=== PATIENT | female | born 1935 | race Caucasian/White ===

== ENCOUNTER 2017-08-19 10:09 | Emergency (ER) | payer MEDICARE, BC ==
[~2017-08-19] VITALS: Ht 152.4 cm; Wt 61.4 kg
[2017-08-19 10:48] LABS: BASOPHILS % (AUTO) 0.4 % (0-1); EOSINOPHILS # (AUTO) 0.3 X10'3 (0-0.9); EOSINOPHILS % (AUTO) 5.3 % (0-6); HEMATOCRIT 29.4 % (35.0-45.0); HEMOGLOBIN 9.6 g/dl (12.0-16.0); LYMPHOCYTES # (AUTO) 0.7 X10'3 (1.1-4.8); LYMPHOCYTES % (AUTO) 10.8 % (21-51); MEAN CORPUSCULAR HEMOGLOBIN 28.6 PG (27.0-31.0); MEAN CORPUSCULAR HGB CONC 32.8 % (33.0-36.5); MEAN CORPUSCULAR VOLUME 87.3 FL (78-98); MONOCYTES # (AUTO) 0.5 X10'3 (0-0.9); MONOCYTES % (AUTO) 7.7 % (2-12); NEUTROPHILS # (AUTO) 4.7 X10'3 (1.8-7.7); NEUTROPHILS % (AUTO) 75.8 % (42-75); PLATELET COUNT 237 X10'3 (140-440); RED BLOOD COUNT 3.37 X10'6 (4.20-5.60); RED CELL DISTRIBUTION WIDTH 14.2 % (11.5-14.5); WHITE BLOOD COUNT 6.2 X10'3 (4.5-11.0)
[2017-08-19 10:59] LABS: INR 0.9 INR; PARTIAL THROMBOPLASTIN TIME 26 SECONDS (22-32); PROTHROMBIN TIME 9.8 SECONDS (9.0-12.0)
[2017-08-19 11:04] LABS: ALANINE AMINOTRANSFERASE 19 U/L (12-78); ALBUMIN 2.9 G/DL (3.4-5.0); ALBUMIN/GLOBULIN RATIO 0.8 (1.1-1.5); ALKALINE PHOSPHATASE 95 IU/L (46-116); ANION GAP 7 (8-16); ASPARTATE AMINO TRANSFERASE 19 U/L (10-37); BILIRUBIN,TOTAL 0.2 MG/DL (0.1-1.0); BLOOD UREA NITROGEN 13 MG/DL (7-18); BUN/CREATININE RATIO 15.5 (6.6-38.0); CALCIUM 8.7 MG/DL (8.5-10.1); CHLORIDE 104 MMOL/L (99-107); CREATININE 0.84 MG/DL (0.40-0.90); GLUCOSE 106 MG/DL (70-104); POTASSIUM 3.9 MMOL/L (3.5-5.1); SODIUM 144 MMOL/L (135-145); TOTAL CARBON DIOXIDE 33.4 MMOL/L (24-32); TOTAL PROTEIN 6.6 G/DL (6.4-8.2); eGFR 65 ML/MIN
[2017-08-19] MEDS ORDERED: normal saline 1000ml 1,000 ML IV ONE (12:27)
[2017-08-19] MEDS ORDERED: HYDROcodone/acetaminophen 10/325mg tab PO ONE (12:30)
[2017-08-19] MEDS ORDERED: ondansetron 4mg rapidly disintigrating tab PO ONE (12:30)
[2017-08-19] MEDS ORDERED: iohexol 350MG/ML 100ml bottle IV ONE ×2 (12:53→13:44)
[2017-08-19] MEDS ORDERED: iohexol 350 MG/ML 50ML vial IV ONE ×2 (12:53→13:44)
[2017-08-19] MEDS ORDERED: ATOR20TA PO (13:43)
[2017-08-19] MEDS ORDERED: SERT25TA PO (13:43)
[2017-08-19] MEDS ORDERED: SENN-61 PO (13:43)
[2017-08-19] MEDS ORDERED: TRAZ-143 PO (13:43)
[2017-08-19] MEDS ORDERED: TOLT4CAP14 PO (13:43)
[2017-08-19] MEDS ORDERED: FURO-150 PO (13:44)
[2017-08-19] MEDS ORDERED: CLOP75TA35 PO (13:44)
[2017-08-19] MEDS ORDERED: DONE10TA6 PO (13:44)
[2017-08-19] MEDS ORDERED: FAMO40TA7 PO (13:44)
[2017-08-19] MEDS ORDERED: GABA-532 PO (13:46)
[2017-08-19] MEDS ORDERED: POLY17PO2 PO (13:46)
[2017-08-19] MEDS ORDERED: HYDR-565 PO (13:46)
[2017-08-19] MEDS ORDERED: ASPI81TA52 PO (14:43)
[2017-08-19] MEDS ORDERED: TRAM50TA2 PO (14:43)
[2017-08-19 15:00] VITALS: BP 141/62
== END 2017-08-19 16:22 | disposition home or self-care (01) ==
LOC: ER 10:10
DX: I77.9 Disorder of arteries and arterioles, unspecified (principal); M79.671 Pain in right foot; R60.0 Localized edema; I25.10 Atherosclerotic heart disease of native coronary artery without angina pectoris; I10 Essential (primary) hypertension; G89.29 Other chronic pain; Z88.0 Allergy status to penicillin; Z79.82 Long term (current) use of aspirin; Z98.890 Other specified postprocedural states; Z79.899 Other long term (current) drug therapy; Z60.2 Problems related to living alone
CPT/HCPCS: 36415; 71045; 73610; 73630; 75635; 80053; 83880; 85025; 85610; 85730; 93922; 93926; 93971; 99285; A6446; A6449; J7030; Q9967

== ENCOUNTER 2017-08-20 12:15 | Emergency (ER) | payer MEDICARE, BC ==
[~2017-08-20] VITALS: Ht 154.9 cm; Wt 69.0 kg
[~2017-08-20 12:15] MED LIST: ASPI81TA52 PO; ATOR20TA PO; CLOP75TA35 PO; DONE10TA6 PO; FAMO40TA7 PO; FURO-150 PO; GABA-532 PO; HYDR-565 PO; POLY17PO2 PO; SENN-61 PO; SERT25TA PO; TOLT4CAP14 PO; TRAM50TA2 PO; TRAZ-143 PO
[2017-08-20 12:47] LABS: BASOPHILS % (AUTO) 0.1 % (0-1); EOSINOPHILS # (AUTO) 0.1 X10'3 (0-0.9); EOSINOPHILS % (AUTO) 1.6 % (0-6); HEMOGLOBIN 9.3 g/dl (12.0-16.0); LYMPHOCYTES # (AUTO) 0.5 X10'3 (1.1-4.8); LYMPHOCYTES % (AUTO) 7.2 % (21-51); MEAN CORPUSCULAR HEMOGLOBIN 28.8 PG (27.0-31.0); MEAN CORPUSCULAR HGB CONC 33.1 % (33.0-36.5); MEAN CORPUSCULAR VOLUME 87.1 FL (78-98); MONOCYTES # (AUTO) 0.5 X10'3 (0-0.9); MONOCYTES % (AUTO) 6.9 % (2-12); NEUTROPHILS # (AUTO) 5.6 X10'3 (1.8-7.7); NEUTROPHILS % (AUTO) 84.2 % (42-75); PLATELET COUNT 238 X10'3 (140-440); RED BLOOD COUNT 3.22 X10'6 (4.20-5.60); RED CELL DISTRIBUTION WIDTH 14.2 % (11.5-14.5); WHITE BLOOD COUNT 6.7 X10'3 (4.5-11.0)
[2017-08-20 13:03] LABS: ALANINE AMINOTRANSFERASE 21 U/L (12-78); ALBUMIN 2.9 G/DL (3.4-5.0); ALBUMIN/GLOBULIN RATIO 0.8 (1.1-1.5); ALKALINE PHOSPHATASE 94 IU/L (46-116); ANION GAP 6 (8-16); ASPARTATE AMINO TRANSFERASE 26 U/L (10-37); BILIRUBIN,TOTAL 0.4 MG/DL (0.1-1.0); BLOOD UREA NITROGEN 14 MG/DL (7-18); BUN/CREATININE RATIO 14.4 (6.6-38.0); CALCIUM 7.4 MG/DL (8.5-10.1); CHLORIDE 102 MMOL/L (99-107); CREATININE 0.97 MG/DL (0.40-0.90); GLUCOSE 114 MG/DL (70-104); SODIUM 141 MMOL/L (135-145); TOTAL CARBON DIOXIDE 32.7 MMOL/L (24-32); TOTAL PROTEIN 6.6 G/DL (6.4-8.2); eGFR 55 ML/MIN
[2017-08-20 15:00] VITALS: BP 116/51
== END 2017-08-20 15:33 | disposition home or self-care (01) ==
LOC: ER 12:15
DX: I73.9 Peripheral vascular disease, unspecified (principal); R60.0 Localized edema; I25.10 Atherosclerotic heart disease of native coronary artery without angina pectoris; I10 Essential (primary) hypertension; G89.29 Other chronic pain; Z98.890 Other specified postprocedural states; Z60.2 Problems related to living alone; Z88.0 Allergy status to penicillin; Z79.82 Long term (current) use of aspirin; Z79.899 Other long term (current) drug therapy
CPT/HCPCS: 36415; 80053; 85025; 99284

== ENCOUNTER 2017-09-18 15:45 | Inpatient (IN) | payer MEDICARE, BC ==
[~2017-09-18] VITALS: Ht 154.9 cm; Wt 69.0 kg
[~2017-09-18 15:45] MED LIST changes: -TRAZ-143 PO; +TRAZ-218 PO
[2017-09-18] MEDS: normal saline 1000ml 1,000 ML IV SCH (16:39)
[2017-09-18] MEDS ORDERED: ondansetron/PF 4mg/2ml inj IV PRN (16:40)
[2017-09-18] MEDS ORDERED: acetaminophen 325mg tablet PO PRN ×2 (16:40)
[2017-09-18] MEDS ORDERED: HYDROcodone/acetaminophen 10/325mg tab PO PRN (16:40)
[2017-09-18] MEDS ORDERED: magnesium Cl slow-release 64mg tablet PO PRN (16:40)
[2017-09-18] MEDS ORDERED: magnesium hydroxide 30ml (MOM) UD suspension PO PRN (16:40)
[2017-09-18] MEDS ORDERED: potassium Cl 40MEQ/NS 500ml 500 ML IV PRN ×2 (16:40)
[2017-09-18] MEDS ORDERED: mag hydrox/Alum hydrox/simeth 30ml oral suspension PO PRN (16:40)
[2017-09-18] MEDS ORDERED: magnesium 1gm/100ml D5W IVPB 100 ML IV PRN (16:40)
[2017-09-18] MEDS ORDERED: potassium Cl 20 mEq SR tablet PO PRN ×2 (16:40)
[2017-09-18] MEDS ORDERED: magnesium 4gm in 100ml NS 100 ML IV PRN (16:40)
[2017-09-18] MEDS ORDERED: HYDROmorphone inj. 0.5 MG/0.5 ML DISP.SYRIN IV PRN ×2 (16:40)
[2017-09-18 17:00] VITALS: BP 158/45
[2017-09-18 17:29] LABS: BASOPHILS % (AUTO) 0.4 % (0-1); EOSINOPHILS # (AUTO) 0.3 X10'3 (0-0.9); EOSINOPHILS % (AUTO) 5.2 % (0-6); HEMATOCRIT 26.5 % (35.0-45.0); HEMOGLOBIN 8.7 g/dl (12.0-16.0); LYMPHOCYTES # (AUTO) 0.8 X10'3 (1.1-4.8); LYMPHOCYTES % (AUTO) 15.8 % (21-51); MEAN CORPUSCULAR HEMOGLOBIN 27.9 PG (27.0-31.0); MEAN CORPUSCULAR HGB CONC 32.9 % (33.0-36.5); MEAN CORPUSCULAR VOLUME 84.7 FL (78-98); MEAN PLATELET VOLUME 6.9 FL (7.4-10.4); MONOCYTES # (AUTO) 0.4 X10'3 (0-0.9); MONOCYTES % (AUTO) 7.6 % (2-12); NEUTROPHILS # (AUTO) 3.8 X10'3 (1.8-7.7); PLATELET COUNT 285 X10'3 (140-440); RED BLOOD COUNT 3.13 X10'6 (4.20-5.60); RED CELL DISTRIBUTION WIDTH 14.2 % (11.5-14.5); WHITE BLOOD COUNT 5.3 X10'3 (4.5-11.0)
[2017-09-18 17:37] LABS: PARTIAL THROMBOPLASTIN TIME 24 SECONDS (22-32)
[2017-09-18] MEDS ORDERED: vancomycin/NS 1 GM ADD-VANTAGE 250 ML IV STA (17:40)
[2017-09-18 17:42] LABS: ALANINE AMINOTRANSFERASE 14 U/L (12-78); ALBUMIN 2.6 G/DL (3.4-5.0); ALBUMIN/GLOBULIN RATIO 0.7 (1.1-1.5); ALKALINE PHOSPHATASE 130 IU/L (46-116); ANION GAP 5 (8-16); ASPARTATE AMINO TRANSFERASE 14 U/L (10-37); BILIRUBIN,TOTAL 0.3 MG/DL (0.1-1.0); BLOOD UREA NITROGEN 12 MG/DL (7-18); BUN/CREATININE RATIO 15.4 (6.6-38.0); CALCIUM 8.5 MG/DL (8.5-10.1); CHLORIDE 104 MMOL/L (99-107); CREATININE 0.78 MG/DL (0.40-0.90); GLUCOSE 118 MG/DL (70-104); PHOSPHORUS 3.5 MG/DL (2.3-4.5); POTASSIUM 3.4 MMOL/L (3.5-5.1); SODIUM 142 MMOL/L (135-145); TOTAL CARBON DIOXIDE 32.6 MMOL/L (24-32); TOTAL PROTEIN 6.3 G/DL (6.4-8.2); eGFR 70 ML/MIN
[2017-09-18] MEDS ORDERED: HYDROmorphone 1 mg/ml syringe ONE (18:56)
[2017-09-18 20:00] VITALS: BP 179/40
[2017-09-18] MEDS ORDERED: traMADol 50MG tablet PO PRN (20:00)
[2017-09-18] MEDS: gabapentin 300mg capsule PO SCH (20:41)
[2017-09-18] MEDS: heparin, porcine 5000 units/ml vial SQ SCH (20:41)
[2017-09-18] MEDS: donepezil 5mg tablet PO SCH (20:42)
[2017-09-18] MEDS: famotidine 20mg tablet PO SCH (20:42)
[2017-09-18] MEDS: traZODone 50mg tablet PO SCH (20:43)
[2017-09-18] MEDS: atorvastatin 20mg tablet PO SCH (20:43)
[2017-09-18] MEDS ORDERED: temazepam 15mg capsule PO PRN (21:00)
[2017-09-19] VITALS (14 sets, daily range): BP systolic 115–166; BP diastolic 34–99
[2017-09-19 04:31] LABS: BASOPHILS % (AUTO) 0.5 % (0-1); EOSINOPHILS # (AUTO) 0.3 X10'3 (0-0.9); EOSINOPHILS % (AUTO) 5.3 % (0-6); HEMATOCRIT 25.5 % (35.0-45.0); HEMOGLOBIN 8.4 g/dl (12.0-16.0); LYMPHOCYTES # (AUTO) 0.9 X10'3 (1.1-4.8); LYMPHOCYTES % (AUTO) 17.2 % (21-51); MEAN CORPUSCULAR HEMOGLOBIN 27.9 PG (27.0-31.0); MEAN CORPUSCULAR HGB CONC 32.8 % (33.0-36.5); MEAN CORPUSCULAR VOLUME 85.3 FL (78-98); MEAN PLATELET VOLUME 7.1 FL (7.4-10.4); MONOCYTES # (AUTO) 0.5 X10'3 (0-0.9); MONOCYTES % (AUTO) 8.7 % (2-12); NEUTROPHILS # (AUTO) 3.7 X10'3 (1.8-7.7); NEUTROPHILS % (AUTO) 68.3 % (42-75); PLATELET COUNT 260 X10'3 (140-440); RED BLOOD COUNT 2.99 X10'6 (4.20-5.60); RED CELL DISTRIBUTION WIDTH 14.1 % (11.5-14.5); WHITE BLOOD COUNT 5.4 X10'3 (4.5-11.0)
[2017-09-19 04:58] LABS: ALANINE AMINOTRANSFERASE 14 U/L (12-78); ALBUMIN 2.3 G/DL (3.4-5.0); ALBUMIN/GLOBULIN RATIO 0.7 (1.1-1.5); ALKALINE PHOSPHATASE 118 IU/L (46-116); ANION GAP 6 (8-16); ASPARTATE AMINO TRANSFERASE 14 U/L (10-37); BILIRUBIN,TOTAL 0.4 MG/DL (0.1-1.0); BLOOD UREA NITROGEN 12 MG/DL (7-18); BUN/CREATININE RATIO 16.9 (6.6-38.0); CALCIUM 8.3 MG/DL (8.5-10.1); CHLORIDE 108 MMOL/L (99-107); CHOL/HDL RATIO 2.2 (0.00-4.99); CHOLESTEROL 104 MG/DL (0-200); CREATININE 0.71 MG/DL (0.40-0.90); GLUCOSE 104 MG/DL (70-104); HDL CHOLESTEROL 47 MG/DL (35-60); LDL CHOLESTEROL 45 MG/DL (50-100); MAGNESIUM 1.9 MG/DL (1.5-2.4); PHOSPHORUS 3.4 MG/DL (2.3-4.5); POTASSIUM 3.7 MMOL/L (3.5-5.1); SODIUM 144 MMOL/L (135-145); TOTAL CARBON DIOXIDE 29.9 MMOL/L (24-32); TOTAL PROTEIN 5.8 G/DL (6.4-8.2); TRIGLYCERIDES 75 MG/DL (20-135); eGFR 78 ML/MIN
[2017-09-19] MEDS: vancomycin/NS 1 GM ADD-VANTAGE 250 ML IV SCH ×2 (05:11→16:57)
[2017-09-19 06:31] LABS: CLARITY,URINE CLEAR (Clear); COLOR,URINE YELLOW (Yellow); GLUCOSE, URINE NEGATIVE (Neg); KETONES,URINE NEGATIVE (Neg); LEUKOCYTE ESTERASE ,URINE NEGATIVE (Neg); NITRITES, URINE NEGATIVE (Neg); OCCULT BLOOD,URINE LARGE (Neg); PROTEIN,URINE NEGATIVE (Neg); UROBILINOGEN,URINE 0.2 E.U/dL (0.2-1.0)
[2017-09-19 06:32] LABS: PH,URINE 7.5 (4.8-8.0)
[2017-09-19 06:49] LABS: UA COLLECTION TYPE NON-SPECIFIED
[2017-09-19 06:50] LABS: BACTERIA,URINE FEW /HPF (Neg); RBC,URINE TNTC /HPF (0-2); SQUAMOUS EPITHELIAL CELL,UR FEW /LPF (FEW); WBC,URINE 0-4 /HPF (0-4)
[2017-09-19] MEDS: sertraline 25mg tablet PO SCH (07:11)
[2017-09-19] MEDS: oxybutynin 5mg tablet PO SCH ×4 (07:12→20:57)
[2017-09-19] MEDS: heparin, porcine 5000 units/ml vial SQ SCH ×2 (07:12→19:57)
[2017-09-19] MEDS: gabapentin 300mg capsule PO SCH ×3 (07:12→20:58)
[2017-09-19] MEDS ORDERED: K and/or MAG REPLACEMENT MC SCH (08:00)
[2017-09-19] MEDS: normal saline 1000ml 1,000 ML IV SCH ×2 (08:07→20:59)
[2017-09-19] MEDS ORDERED: pneumococcal 23-VAL P-sac vacc 25 mcg/0.5ml vial IMVAC ONE (10:00)
[2017-09-19 14:24] LABS: % IRON SATURATION 22 % (11-46); IRON 34 UG/DL (49-151); TOTAL IRON BINDING CAPACITY 155 UG/DL (259-388)
[2017-09-19] MEDS: lactobacillus rhamnosus 10,000 MMU CELLS/CAPSULE PO SCH (19:55)
[2017-09-19] MEDS: HYDROcodone/acetaminophen 5mg/325mg tablet PO PRN (19:56)
[2017-09-19] MEDS: traZODone 50mg tablet PO SCH (20:57)
[2017-09-19] MEDS: atorvastatin 20mg tablet PO SCH (20:57)
[2017-09-19] MEDS: famotidine 20mg tablet PO SCH (20:58)
[2017-09-19] MEDS: donepezil 5mg tablet PO SCH (20:58)
[2017-09-20] VITALS: BP 146/60
[2017-09-20] MEDS ORDERED: VANCOMYCIN LEVEL IV ONE (05:30)
[2017-09-20] MEDS: vancomycin/NS 1 GM ADD-VANTAGE 250 ML IV SCH ×2 (05:46→17:30)
[2017-09-20 05:51] LABS: BASOPHILS % (AUTO) 0.3 % (0-1); EOSINOPHILS # (AUTO) 0.2 X10'3 (0-0.9); EOSINOPHILS % (AUTO) 3.3 % (0-6); HEMATOCRIT 33.4 % (35.0-45.0); LYMPHOCYTES # (AUTO) 0.5 X10'3 (1.1-4.8); LYMPHOCYTES % (AUTO) 10.7 % (21-51); MEAN CORPUSCULAR HEMOGLOBIN 28.7 PG (27.0-31.0); MEAN CORPUSCULAR HGB CONC 32.9 % (33.0-36.5); MEAN CORPUSCULAR VOLUME 87.2 FL (78-98); MEAN PLATELET VOLUME 7.1 FL (7.4-10.4); MONOCYTES # (AUTO) 0.4 X10'3 (0-0.9); MONOCYTES % (AUTO) 8.2 % (2-12); NEUTROPHILS # (AUTO) 3.9 X10'3 (1.8-7.7); NEUTROPHILS % (AUTO) 77.5 % (42-75); PLATELET COUNT 230 X10'3 (140-440); RED BLOOD COUNT 3.83 X10'6 (4.20-5.60); RED CELL DISTRIBUTION WIDTH 14.7 % (11.5-14.5)
[2017-09-20 06:05] LABS: ALANINE AMINOTRANSFERASE 14 U/L (12-78); ALBUMIN 2.3 G/DL (3.4-5.0); ALBUMIN/GLOBULIN RATIO 0.6 (1.1-1.5); ALKALINE PHOSPHATASE 120 IU/L (46-116); ANION GAP 5 (8-16); ASPARTATE AMINO TRANSFERASE 12 U/L (10-37); BILIRUBIN,TOTAL 0.7 MG/DL (0.1-1.0); BLOOD UREA NITROGEN 9 MG/DL (7-18); BUN/CREATININE RATIO 15.5 (6.6-38.0); CALCIUM 8.6 MG/DL (8.5-10.1); CHLORIDE 108 MMOL/L (99-107); CREATININE 0.58 MG/DL (0.40-0.90); GLUCOSE 107 MG/DL (70-104); PHOSPHORUS 3.1 MG/DL (2.3-4.5); POTASSIUM 3.8 MMOL/L (3.5-5.1); SODIUM 142 MMOL/L (135-145); TOTAL CARBON DIOXIDE 29.4 MMOL/L (24-32); VANCOMYCIN,TROUGH 16.9 UG/ML (6.0-14.0); eGFR > 90 ML/MIN
[2017-09-20 07:19] VITALS: BP 165/51
[2017-09-20 07:28] LABS: PARTIAL THROMBOPLASTIN TIME 25 SECONDS (22-32); PROTHROMBIN TIME 10.2 SECONDS (9.0-12.0)
[2017-09-20] MEDS: gabapentin 300mg capsule PO SCH ×3 (07:36→20:23)
[2017-09-20] MEDS: oxybutynin 5mg tablet PO SCH ×4 (07:36→20:23)
[2017-09-20] MEDS: sertraline 25mg tablet PO SCH (07:37)
[2017-09-20] MEDS: lactobacillus rhamnosus 10,000 MMU CELLS/CAPSULE PO SCH ×2 (07:37→20:21)
[2017-09-20] MEDS: heparin, porcine 5000 units/ml vial SQ SCH ×2 (07:37→20:22)
[2017-09-20 08:00] VITALS: BP 151/58
[2017-09-20] MEDS: normal saline 1000ml 1,000 ML IV SCH (11:33)
[2017-09-20 12:29] VITALS: BP 150/51
[2017-09-20] MEDS: HYDROcodone/acetaminophen 5mg/325mg tablet PO PRN (14:42)
[2017-09-20] MEDS: ferrous sulfate 325mg tablet PO SCH (17:30)
[2017-09-20 20:00] VITALS: BP 148/39
[2017-09-20] MEDS: docusate sod 100mg capsule PO SCH (20:21)
[2017-09-20] MEDS: donepezil 5mg tablet PO SCH (20:22)
[2017-09-20] MEDS: traZODone 50mg tablet PO SCH (20:23)
[2017-09-20] MEDS: atorvastatin 20mg tablet PO SCH (20:23)
[2017-09-20] MEDS: famotidine 20mg tablet PO SCH (20:24)
[2017-09-21] VITALS: BP 160/60
[2017-09-21] MEDS: normal saline 1000ml 1,000 ML IV SCH ×3 (01:51→20:08)
[2017-09-21] MEDS: vancomycin/NS 1 GM ADD-VANTAGE 250 ML IV SCH ×2 (05:50→17:57)
[2017-09-21 05:57] LABS: BASOPHILS % (AUTO) 0.6 % (0-1); EOSINOPHILS # (AUTO) 0.3 X10'3 (0-0.9); EOSINOPHILS % (AUTO) 6.1 % (0-6); HEMOGLOBIN 11.3 g/dl (12.0-16.0); LYMPHOCYTES # (AUTO) 0.6 X10'3 (1.1-4.8); LYMPHOCYTES % (AUTO) 9.9 % (21-51); MEAN CORPUSCULAR HEMOGLOBIN 28.8 PG (27.0-31.0); MEAN CORPUSCULAR HGB CONC 33.2 % (33.0-36.5); MEAN CORPUSCULAR VOLUME 86.7 FL (78-98); MEAN PLATELET VOLUME 7.2 FL (7.4-10.4); MONOCYTES # (AUTO) 0.4 X10'3 (0-0.9); MONOCYTES % (AUTO) 7.4 % (2-12); NEUTROPHILS # (AUTO) 4.4 X10'3 (1.8-7.7); PLATELET COUNT 225 X10'3 (140-440); RED BLOOD COUNT 3.92 X10'6 (4.20-5.60); RED CELL DISTRIBUTION WIDTH 14.6 % (11.5-14.5); WHITE BLOOD COUNT 5.7 X10'3 (4.5-11.0)
[2017-09-21 06:22] LABS: ALANINE AMINOTRANSFERASE 11 U/L (12-78); ALBUMIN 2.3 G/DL (3.4-5.0); ALBUMIN/GLOBULIN RATIO 0.6 (1.1-1.5); ALKALINE PHOSPHATASE 113 IU/L (46-116); ANION GAP 7 (8-16); ASPARTATE AMINO TRANSFERASE 11 U/L (10-37); BILIRUBIN,TOTAL 0.7 MG/DL (0.1-1.0); BLOOD UREA NITROGEN 13 MG/DL (7-18); BUN/CREATININE RATIO 20.6 (6.6-38.0); CALCIUM 8.6 MG/DL (8.5-10.1); CHLORIDE 107 MMOL/L (99-107); CREATININE 0.63 MG/DL (0.40-0.90); GLUCOSE 98 MG/DL (70-104); MAGNESIUM 1.9 MG/DL (1.5-2.4); PHOSPHORUS 3.2 MG/DL (2.3-4.5); POTASSIUM 3.6 MMOL/L (3.5-5.1); SODIUM 141 MMOL/L (135-145); eGFR 90 ML/MIN
[2017-09-21 08:00] VITALS: BP 170/58
[2017-09-21] MEDS: docusate sod 100mg capsule PO SCH ×2 (08:27→20:16)
[2017-09-21] MEDS: lactobacillus rhamnosus 10,000 MMU CELLS/CAPSULE PO SCH ×2 (08:27→20:16)
[2017-09-21] MEDS: gabapentin 300mg capsule PO SCH ×3 (08:27→20:17)
[2017-09-21] MEDS: oxybutynin 5mg tablet PO SCH ×4 (08:27→20:17)
[2017-09-21] MEDS: ferrous sulfate 325mg tablet PO SCH ×3 (08:27→17:57)
[2017-09-21] MEDS: sertraline 25mg tablet PO SCH (08:27)
[2017-09-21] MEDS: HYDROcodone/acetaminophen 5mg/325mg tablet PO PRN (08:28)
[2017-09-21] MEDS: heparin, porcine 5000 units/ml vial SQ SCH ×2 (08:28→20:16)
[2017-09-21 12:00] VITALS: BP 100/50
[2017-09-21 20:00] VITALS: BP_SYST 152; BP_SYST 170; BP_DIAS 44; BP_DIAS 56
[2017-09-21] MEDS: famotidine 20mg tablet PO SCH (20:17)
[2017-09-21] MEDS: traZODone 50mg tablet PO SCH (20:17)
[2017-09-21] MEDS: donepezil 5mg tablet PO SCH (20:17)
[2017-09-21] MEDS: atorvastatin 20mg tablet PO SCH (20:18)
[2017-09-22] VITALS: BP 152/56
[2017-09-22] MEDS: vancomycin/NS 1 GM ADD-VANTAGE 250 ML IV SCH ×2 (05:40→18:57)
[2017-09-22 05:44] LABS: BASOPHILS % (AUTO) 0.5 % (0-1); EOSINOPHILS # (AUTO) 0.4 X10'3 (0-0.9); EOSINOPHILS % (AUTO) 7.1 % (0-6); HEMATOCRIT 33.5 % (35.0-45.0); HEMOGLOBIN 11.3 g/dl (12.0-16.0); LYMPHOCYTES # (AUTO) 0.6 X10'3 (1.1-4.8); LYMPHOCYTES % (AUTO) 11.1 % (21-51); MEAN CORPUSCULAR HEMOGLOBIN 28.8 PG (27.0-31.0); MEAN CORPUSCULAR HGB CONC 33.6 % (33.0-36.5); MEAN CORPUSCULAR VOLUME 85.8 FL (78-98); MEAN PLATELET VOLUME 7.1 FL (7.4-10.4); MONOCYTES # (AUTO) 0.5 X10'3 (0-0.9); MONOCYTES % (AUTO) 9.1 % (2-12); NEUTROPHILS # (AUTO) 3.7 X10'3 (1.8-7.7); NEUTROPHILS % (AUTO) 72.2 % (42-75); PLATELET COUNT 218 X10'3 (140-440); RED BLOOD COUNT 3.91 X10'6 (4.20-5.60); RED CELL DISTRIBUTION WIDTH 14.8 % (11.5-14.5); WHITE BLOOD COUNT 5.2 X10'3 (4.5-11.0)
[2017-09-22 06:08] LABS: ALANINE AMINOTRANSFERASE 15 U/L (12-78); ALBUMIN 2.2 G/DL (3.4-5.0); ALBUMIN/GLOBULIN RATIO 0.5 (1.1-1.5); ALKALINE PHOSPHATASE 103 IU/L (46-116); ANION GAP 8 (8-16); ASPARTATE AMINO TRANSFERASE 17 U/L (10-37); BILIRUBIN,TOTAL 0.5 MG/DL (0.1-1.0); BLOOD UREA NITROGEN 14 MG/DL (7-18); CALCIUM 8.5 MG/DL (8.5-10.1); CHLORIDE 108 MMOL/L (99-107); CREATININE 0.61 MG/DL (0.40-0.90); GLUCOSE 95 MG/DL (70-104); MAGNESIUM 1.9 MG/DL (1.5-2.4); PHOSPHORUS 3.6 MG/DL (2.3-4.5); POTASSIUM 3.8 MMOL/L (3.5-5.1); SODIUM 143 MMOL/L (135-145); TOTAL CARBON DIOXIDE 26.8 MMOL/L (24-32); TOTAL PROTEIN 6.3 G/DL (6.4-8.2); eGFR > 90 ML/MIN
[2017-09-22 07:00] VITALS: BP 167/50
[2017-09-22] MEDS: lactobacillus rhamnosus 10,000 MMU CELLS/CAPSULE PO SCH ×2 (08:36→20:41)
[2017-09-22] MEDS: oxybutynin 5mg tablet PO SCH ×4 (08:36→20:49)
[2017-09-22] MEDS: sertraline 25mg tablet PO SCH (08:36)
[2017-09-22] MEDS: docusate sod 100mg capsule PO SCH ×2 (08:36→20:40)
[2017-09-22] MEDS: gabapentin 300mg capsule PO SCH ×3 (08:36→20:50)
[2017-09-22] MEDS: ferrous sulfate 325mg tablet PO SCH ×3 (08:36→17:54)
[2017-09-22] MEDS: heparin, porcine 5000 units/ml vial SQ SCH ×2 (08:37→20:41)
[2017-09-22 12:00] VITALS: BP 170/51
[2017-09-22 20:00] VITALS: BP 153/88
[2017-09-22] MEDS: normal saline 1000ml 1,000 ML IV SCH (20:41)
[2017-09-22] MEDS: donepezil 5mg tablet PO SCH (20:42)
[2017-09-22] MEDS: traZODone 50mg tablet PO SCH (20:48)
[2017-09-22] MEDS: atorvastatin 20mg tablet PO SCH (20:49)
[2017-09-22] MEDS: famotidine 20mg tablet PO SCH (20:51)
[2017-09-22] MEDS: HYDROcodone/acetaminophen 5mg/325mg tablet PO PRN (20:52)
[2017-09-23] VITALS: BP 151/40
[2017-09-23] MEDS: normal saline 1000ml 1,000 ML IV SCH (05:28)
[2017-09-23 05:43] LABS: BASOPHILS % (AUTO) 0.7 % (0-1); EOSINOPHILS # (AUTO) 0.4 X10'3 (0-0.9); EOSINOPHILS % (AUTO) 8.4 % (0-6); HEMATOCRIT 32.1 % (35.0-45.0); HEMOGLOBIN 10.6 g/dl (12.0-16.0); LYMPHOCYTES # (AUTO) 0.7 X10'3 (1.1-4.8); LYMPHOCYTES % (AUTO) 13.8 % (21-51); MEAN CORPUSCULAR HEMOGLOBIN 28.9 PG (27.0-31.0); MEAN CORPUSCULAR HGB CONC 33.2 % (33.0-36.5); MEAN CORPUSCULAR VOLUME 87.2 FL (78-98); MEAN PLATELET VOLUME 7.1 FL (7.4-10.4); MONOCYTES # (AUTO) 0.6 X10'3 (0-0.9); NEUTROPHILS # (AUTO) 3.3 X10'3 (1.8-7.7); NEUTROPHILS % (AUTO) 65.1 % (42-75); PLATELET COUNT 210 X10'3 (140-440); RED BLOOD COUNT 3.69 X10'6 (4.20-5.60); WHITE BLOOD COUNT 5.1 X10'3 (4.5-11.0)
[2017-09-23] MEDS: vancomycin/NS 1 GM ADD-VANTAGE 250 ML IV SCH ×4 (05:45→17:08)
[2017-09-23 06:01] LABS: ALANINE AMINOTRANSFERASE 13 U/L (12-78); ALBUMIN 2.2 G/DL (3.4-5.0); ALBUMIN/GLOBULIN RATIO 0.6 (1.1-1.5); ALKALINE PHOSPHATASE 95 IU/L (46-116); ANION GAP 8 (8-16); ASPARTATE AMINO TRANSFERASE 15 U/L (10-37); BILIRUBIN,TOTAL 0.3 MG/DL (0.1-1.0); BLOOD UREA NITROGEN 17 MG/DL (7-18); CALCIUM 8.5 MG/DL (8.5-10.1); CHLORIDE 107 MMOL/L (99-107); CREATININE 0.63 MG/DL (0.40-0.90); GLUCOSE 128 MG/DL (70-104); MAGNESIUM 1.9 MG/DL (1.5-2.4); PHOSPHORUS 3.6 MG/DL (2.3-4.5); POTASSIUM 3.7 MMOL/L (3.5-5.1); SODIUM 141 MMOL/L (135-145); TOTAL CARBON DIOXIDE 26.1 MMOL/L (24-32); TOTAL PROTEIN 5.7 G/DL (6.4-8.2); eGFR 90 ML/MIN
[2017-09-23 06:55] VITALS: BP 207/58
[2017-09-23] MEDS: gabapentin 300mg capsule PO SCH ×3 (07:46→21:12)
[2017-09-23] MEDS: ferrous sulfate 325mg tablet PO SCH ×3 (07:46→17:07)
[2017-09-23] MEDS: lactobacillus rhamnosus 10,000 MMU CELLS/CAPSULE PO SCH ×2 (07:46→21:09)
[2017-09-23] MEDS: docusate sod 100mg capsule PO SCH ×2 (07:47→21:09)
[2017-09-23] MEDS: heparin, porcine 5000 units/ml vial SQ SCH ×2 (07:47→20:00)
[2017-09-23] MEDS: sertraline 25mg tablet PO SCH (07:47)
[2017-09-23] MEDS: oxybutynin 5mg tablet PO SCH ×4 (07:47→21:10)
[2017-09-23 08:26] VITALS: BP 180/48
[2017-09-23 11:41] VITALS: BP 162/48
[2017-09-23] MEDS: furosemide 20 MG/2 ML vial IV SCH ×2 (15:46→21:18)
[2017-09-23 19:00] VITALS: BP 148/43
[2017-09-23] MEDS: atorvastatin 20mg tablet PO SCH (21:10)
[2017-09-23] MEDS: donepezil 5mg tablet PO SCH (21:10)
[2017-09-23] MEDS: traZODone 50mg tablet PO SCH (21:10)
[2017-09-23] MEDS: famotidine 20mg tablet PO SCH (21:11)
[2017-09-24] VITALS: BP 146/53
[2017-09-24] MEDS: vancomycin/NS 1 GM ADD-VANTAGE 250 ML IV SCH ×2 (05:20→16:25)
[2017-09-24] MEDS: lactobacillus rhamnosus 10,000 MMU CELLS/CAPSULE PO SCH ×2 (07:41→21:01)
[2017-09-24] MEDS: oxybutynin 5mg tablet PO SCH ×4 (07:41→21:03)
[2017-09-24] MEDS: sertraline 25mg tablet PO SCH (07:41)
[2017-09-24] MEDS: furosemide 20 MG/2 ML vial IV SCH (07:41)
[2017-09-24] MEDS: docusate sod 100mg capsule PO SCH ×2 (07:41→21:01)
[2017-09-24] MEDS: gabapentin 300mg capsule PO SCH ×3 (07:41→21:05)
[2017-09-24] MEDS: heparin, porcine 5000 units/ml vial SQ SCH ×2 (07:42→21:02)
[2017-09-24] MEDS: ferrous sulfate 325mg tablet PO SCH ×3 (07:46→16:24)
[2017-09-24 07:47] VITALS: BP 157/41
[2017-09-24] MEDS ORDERED: furosemide 20 MG/2 ML vial IV SCH (14:00)
[2017-09-24] MEDS: lisinopril 20mg tablet PO SCH (15:00)
[2017-09-24 19:00] VITALS: BP 108/41
[2017-09-24] MEDS: donepezil 5mg tablet PO SCH (21:02)
[2017-09-24] MEDS: traZODone 50mg tablet PO SCH (21:02)
[2017-09-24] MEDS: atorvastatin 20mg tablet PO SCH (21:04)
[2017-09-24] MEDS: HYDROcodone/acetaminophen 5mg/325mg tablet PO PRN (21:06)
[2017-09-24] MEDS: famotidine 20mg tablet PO SCH (21:07)
[2017-09-25] VITALS: BP 129/26
[2017-09-25] MEDS: vancomycin/NS 1 GM ADD-VANTAGE 250 ML IV SCH (05:31)
[2017-09-25 07:00] VITALS: BP 106/49
[2017-09-25] MEDS: gabapentin 300mg capsule PO SCH ×2 (07:56→12:55)
[2017-09-25] MEDS: ferrous sulfate 325mg tablet PO SCH ×2 (07:56→12:55)
[2017-09-25] MEDS: sertraline 25mg tablet PO SCH (07:57)
[2017-09-25] MEDS: docusate sod 100mg capsule PO SCH (07:57)
[2017-09-25] MEDS: oxybutynin 5mg tablet PO SCH ×2 (07:57→12:55)
[2017-09-25] MEDS: lactobacillus rhamnosus 10,000 MMU CELLS/CAPSULE PO SCH (07:58)
[2017-09-25] MEDS: lisinopril 20mg tablet PO SCH (07:58)
[2017-09-25] MEDS: heparin, porcine 5000 units/ml vial SQ SCH (07:59)
== END 2017-09-25 14:30 | DRG 565 ==
LOC: SUR 3N 15:45
PROVIDERS: ADMIT Surgery; ATTEND Family Medicine
PROC: 30233N1 Transfusion of Nonautologous Red Blood Cells into Peripheral Vein, Percutaneous Approach (ICD-10-PCS; principal; 2017-09-19)
DX: T87.43 Infection of amputation stump, right lower extremity (principal); E44.0 Moderate protein-calorie malnutrition; I73.9 Peripheral vascular disease, unspecified; E78.5 Hyperlipidemia, unspecified; D50.9 Iron deficiency anemia, unspecified; F32.9 Major depressive disorder, single episode, unspecified; Z66 Do not resuscitate; Y83.5 Amputation of limb(s) as the cause of abnormal reaction of the patient, or of later complication, without mention of misadventure at the time of the procedure; I10 Essential (primary) hypertension; Z90.710 Acquired absence of both cervix and uterus; Z90.49 Acquired absence of other specified parts of digestive tract; Z79.899 Other long term (current) drug therapy; Z79.82 Long term (current) use of aspirin; Z88.0 Allergy status to penicillin; Z87.891 Personal history of nicotine dependence; Y92.89 Other specified places as the place of occurrence of the external cause; Z68.28 Body mass index [BMI] 28.0-28.9, adult
CPT/HCPCS: 36415; 71045; 80053; 80061; 80202; 81001; 82746; 83540; 83550; 83605; 83735; 84100; 85025; 85610; 85730; 86885; 86900; 86901; 86920; 87040; 87070; 90732; 97110; 97161; 97530; A4315; A6212; A6213; A6253; A6446; A6449; J1170; J1644; J1940; J3370; J7030; P9016

== ENCOUNTER 2018-01-03 09:02 | Inpatient (IN) | payer MEDICARE, BC ==
[~2018-01-03] VITALS: Ht 154.9 cm; Wt 59.0 kg
[2018-01-03] VITALS (8 sets, daily range): BP systolic 113–146; BP diastolic 44–70
[~2018-01-03 09:02] MED LIST changes: -DONE10TA6 PO; +DONE10TA7 PO; +HYDR-4353 PO; -HYDR-565 PO; -TRAM50TA2 PO
[2018-01-03 09:44] LABS: BASOPHILS % (AUTO) 0.4 % (0-1); EOSINOPHILS # (AUTO) 0.2 X10'3 (0-0.9); EOSINOPHILS % (AUTO) 3.4 % (0-6); HEMATOCRIT 28.6 % (35.0-45.0); HEMOGLOBIN 9.6 g/dl (12.0-16.0); LYMPHOCYTES # (AUTO) 0.7 X10'3 (1.1-4.8); LYMPHOCYTES % (AUTO) 14.8 % (21-51); MEAN CORPUSCULAR HEMOGLOBIN 29.3 PG (27.0-31.0); MEAN CORPUSCULAR HGB CONC 33.5 % (33.0-36.5); MEAN CORPUSCULAR VOLUME 87.6 FL (78-98); MEAN PLATELET VOLUME 7.1 FL (7.4-10.4); MONOCYTES # (AUTO) 0.4 X10'3 (0-0.9); MONOCYTES % (AUTO) 8.2 % (2-12); NEUTROPHILS # (AUTO) 3.5 X10'3 (1.8-7.7); NEUTROPHILS % (AUTO) 73.2 % (42-75); PLATELET COUNT 355 X10'3 (140-440); RED BLOOD COUNT 3.26 X10'6 (4.20-5.60); RED CELL DISTRIBUTION WIDTH 13.7 % (11.5-14.5); WHITE BLOOD COUNT 4.8 X10'3 (4.5-11.0)
[2018-01-03 09:55] LABS: PROTHROMBIN TIME 10.3 SECONDS (9.0-12.0)
[2018-01-03 09:58] LABS: ALANINE AMINOTRANSFERASE 15 U/L (12-78); ALBUMIN/GLOBULIN RATIO 0.8 (1.1-1.5); ALKALINE PHOSPHATASE 99 IU/L (46-116); ANION GAP 3 (8-16); ASPARTATE AMINO TRANSFERASE 26 U/L (10-37); BILIRUBIN,TOTAL 0.4 MG/DL (0.1-1.0); BLOOD UREA NITROGEN 28 MG/DL (7-18); BUN/CREATININE RATIO 21.5 (6.6-38.0); CALCIUM 9.1 MG/DL (8.5-10.1); CHLORIDE 101 MMOL/L (99-107); GLUCOSE 101 MG/DL (70-104); POTASSIUM 4.5 MMOL/L (3.5-5.1); SODIUM 136 MMOL/L (135-145); TOTAL CARBON DIOXIDE 32.4 MMOL/L (24-32); TOTAL PROTEIN 6.8 G/DL (6.4-8.2); eGFR 39 ML/MIN
[2018-01-03 10:16] LABS: CLARITY,URINE CLEAR (Clear); COLOR,URINE YELLOW (Yellow); GLUCOSE, URINE NEGATIVE (Neg); KETONES,URINE NEGATIVE (Neg); LEUKOCYTE ESTERASE ,URINE NEGATIVE (Neg); NITRITES, URINE NEGATIVE (Neg); OCCULT BLOOD,URINE NEGATIVE (Neg); PROTEIN,URINE NEGATIVE (Neg); UROBILINOGEN,URINE 0.2 E.U/dL (0.2-1.0)
[2018-01-03] MEDS ORDERED: normal saline 1000ML IV soln IVB ONE (10:20)
[2018-01-03 10:23] LABS: UA COLLECTION TYPE STRAIGHT CATH
[2018-01-03] MEDS ORDERED: PRAV80TA3 PO (13:05)
[2018-01-03] MEDS ORDERED: DOCU-28 PO (13:05)
[2018-01-03] MEDS ORDERED: HYDR-4383 PO (13:05)
[2018-01-03] MEDS ORDERED: CLOP75TA35 PO (13:05)
[2018-01-03] MEDS ORDERED: LISI-600 PO (13:05)
[2018-01-03] MEDS ORDERED: OXYB5TAB11 PO (13:05)
[2018-01-03] MEDS ORDERED: DONE5TAB7 PO (13:05)
[2018-01-03] MEDS ORDERED: FERR325T28 PO (13:05)
[2018-01-03] MEDS ORDERED: GABA800T2 PO (13:05)
[2018-01-03] MEDS ORDERED: SERT25TA PO (13:05)
[2018-01-03] MEDS ORDERED: potassium Cl 40MEQ/NS 500ml 500 ML IV PRN ×2 (13:20)
[2018-01-03] MEDS ORDERED: acetaminophen 325mg tablet PO PRN (13:20)
[2018-01-03] MEDS ORDERED: magnesium Cl slow-release 64mg tablet PO PRN (13:20)
[2018-01-03] MEDS ORDERED: magnesium 4gm in 100ml NS 100 ML IV PRN (13:20)
[2018-01-03] MEDS ORDERED: magnesium 1gm/100ml D5W IVPB 100 ML IV PRN (13:20)
[2018-01-03] MEDS ORDERED: HYDROcodone/acetaminophen 5mg/325mg tablet PO PRN (13:20)
[2018-01-03] MEDS ORDERED: potassium Cl 20 mEq SR tablet PO PRN ×2 (13:20)
[2018-01-03] MEDS ORDERED: ondansetron/PF 4mg/2ml inj IV PRN (13:20)
[2018-01-03] MEDS ORDERED: FAMO40TA7 PO (13:36)
[2018-01-03] MEDS: normal saline 1000ml 1,000 ML IV SCH (14:34)
[2018-01-03] MEDS ORDERED: MIDAZolam 5mg/5ml vial ONE (15:53)
[2018-01-03] MEDS ORDERED: fentaNYL/PF 50MCG/1 ML 2ML syringe ONE (15:53)
[2018-01-03] MEDS ORDERED: LIDOcaine Viscous 15ml cup ONE (15:53)
[2018-01-03] MEDS: ferrous sulfate 325mg tablet PO SCH (20:45)
[2018-01-03] MEDS ORDERED: donepezil 5mg tablet PO SCH (21:00)
[2018-01-03] MEDS ORDERED: traZODone 50mg tablet PO SCH (21:00)
[2018-01-03] MEDS ORDERED: temazepam 15mg capsule PO PRN (21:00)
[2018-01-03] MEDS ORDERED: non-formulary drug (Pravastatin Sodium 1 TAB) PO SCH (21:00)
[2018-01-03] MEDS ORDERED: pravastatin 40mg tablet PO SCH (21:00)
[2018-01-04] VITALS: BP 143/37
[2018-01-04] MEDS ORDERED: gabapentin 400mg capsule PO SCH
[2018-01-04] MEDS ORDERED: non-formulary drug (Gabapentin 1 TAB) PO SCH
[2018-01-04] MEDS: gabapentin 100mg capsule PO SCH ×3 (00:03→16:12)
[2018-01-04] MEDS: normal saline 1000ml 1,000 ML IV SCH ×2 (02:37→08:28)
[2018-01-04 05:54] LABS: BASOPHILS % (AUTO) 0.5 % (0-1); EOSINOPHILS # (AUTO) 0.1 X10'3 (0-0.9); HEMATOCRIT 26.4 % (35.0-45.0); HEMOGLOBIN 8.8 g/dl (12.0-16.0); LYMPHOCYTES # (AUTO) 0.6 X10'3 (1.1-4.8); LYMPHOCYTES % (AUTO) 12.9 % (21-51); MEAN CORPUSCULAR HEMOGLOBIN 29.3 PG (27.0-31.0); MEAN CORPUSCULAR HGB CONC 33.3 % (33.0-36.5); MEAN CORPUSCULAR VOLUME 88.2 FL (78-98); MEAN PLATELET VOLUME 7.5 FL (7.4-10.4); MONOCYTES # (AUTO) 0.3 X10'3 (0-0.9); MONOCYTES % (AUTO) 7.2 % (2-12); NEUTROPHILS # (AUTO) 3.3 X10'3 (1.8-7.7); NEUTROPHILS % (AUTO) 76.4 % (42-75); PLATELET COUNT 295 X10'3 (140-440); RED BLOOD COUNT 2.99 X10'6 (4.20-5.60); RED CELL DISTRIBUTION WIDTH 13.3 % (11.5-14.5); WHITE BLOOD COUNT 4.3 X10'3 (4.5-11.0)
[2018-01-04 05:58] LABS: ALBUMIN 2.4 G/DL (3.4-5.0); ANION GAP 10 (8-16); BLOOD UREA NITROGEN 21 MG/DL (7-18); BUN/CREATININE RATIO 28.4 (6.6-38.0); CALCIUM 8.4 MG/DL (8.5-10.1); CHLORIDE 109 MMOL/L (99-107); CREATININE 0.74 MG/DL (0.40-0.90); GLUCOSE 87 MG/DL (70-104); MAGNESIUM 2.3 MG/DL (1.5-2.4); POTASSIUM 4.1 MMOL/L (3.5-5.1); SODIUM 144 MMOL/L (135-145); TOTAL CARBON DIOXIDE 25.5 MMOL/L (24-32); eGFR 75 ML/MIN
[2018-01-04 07:30] VITALS: BP 145/42
[2018-01-04] MEDS ORDERED: sertraline 25mg tablet PO SCH (08:00)
[2018-01-04] MEDS ORDERED: lisinopril 20mg tablet PO SCH (08:00)
[2018-01-04] MEDS ORDERED: pantoprazole 40 MG vial IV SCH (08:00)
[2018-01-04] MEDS ORDERED: K and/or MAG REPLACEMENT MC SCH (08:00)
[2018-01-04] MEDS: ferrous sulfate 325mg tablet PO SCH ×2 (08:17→13:30)
[2018-01-04] MEDS ORDERED: pneumococcal 23-VAL P-sac vacc 25 mcg/0.5ml vial IMVAC ONE (11:00)
[2018-01-04] MEDS ORDERED: PANT-47 PO (12:09)
[2018-01-04 12:34] VITALS: BP 105/48
[2018-01-04 15:57] LABS: BASOPHILS # (AUTO) 0.1 X10'3 (0-0.2); BASOPHILS % (AUTO) 1.4 % (0-1); EOSINOPHILS # (AUTO) 0.1 X10'3 (0-0.9); EOSINOPHILS % (AUTO) 1.6 % (0-6); HEMATOCRIT 26.4 % (35.0-45.0); HEMOGLOBIN 8.7 g/dl (12.0-16.0); LYMPHOCYTES # (AUTO) 0.6 X10'3 (1.1-4.8); LYMPHOCYTES % (AUTO) 9.2 % (21-51); MEAN CORPUSCULAR HEMOGLOBIN 28.9 PG (27.0-31.0); MEAN CORPUSCULAR HGB CONC 32.9 % (33.0-36.5); MEAN CORPUSCULAR VOLUME 87.8 FL (78-98); MEAN PLATELET VOLUME 7.4 FL (7.4-10.4); MONOCYTES # (AUTO) 0.4 X10'3 (0-0.9); MONOCYTES % (AUTO) 6.5 % (2-12); NEUTROPHILS # (AUTO) 5.4 X10'3 (1.8-7.7); NEUTROPHILS % (AUTO) 81.3 % (42-75); PLATELET COUNT 314 X10'3 (140-440); RED BLOOD COUNT 3.01 X10'6 (4.20-5.60); RED CELL DISTRIBUTION WIDTH 13.6 % (11.5-14.5); WHITE BLOOD COUNT 6.7 X10'3 (4.5-11.0)
[2018-01-08 09:25] LABS: OCCULT BLOOD STOOL POSITIVE (Neg)
== END 2018-01-04 16:49 | disposition home health service (06) | DRG 378 ==
LOC: ER 09:03 → ED HOLD 13:17 → SUR 3N 14:12
PROVIDERS: ADMIT Internal Medicine; ATTEND Family Medicine
PROC: 0DB68ZX Excision of Stomach, Via Natural or Artificial Opening Endoscopic, Diagnostic (ICD-10-PCS; principal; 2018-01-03)
PROC: 3E02340 Introduction of Influenza Vaccine into Muscle, Percutaneous Approach (ICD-10-PCS; 2018-01-04)
PROC: 3E0234Z Introduction of Serum, Toxoid and Vaccine into Muscle, Percutaneous Approach (ICD-10-PCS; 2018-01-04)
DX: K29.71 Gastritis, unspecified, with bleeding (principal); E44.0 Moderate protein-calorie malnutrition; F03.90 Unspecified dementia, unspecified severity, without behavioral disturbance, psychotic disturbance, mood disturbance, and anxiety; F41.9 Anxiety disorder, unspecified; I12.9 Hypertensive chronic kidney disease with stage 1 through stage 4 chronic kidney disease, or unspecified chronic kidney disease; K44.9 Diaphragmatic hernia without obstruction or gangrene; D50.0 Iron deficiency anemia secondary to blood loss (chronic); G89.29 Other chronic pain; Z60.2 Problems related to living alone; R19.7 Diarrhea, unspecified; M54.9 Dorsalgia, unspecified; I25.10 Atherosclerotic heart disease of native coronary artery without angina pectoris; N18.3 Chronic kidney disease, stage 3 (moderate); Z66 Do not resuscitate; Z89.511 Acquired absence of right leg below knee; Z23 Encounter for immunization; Z88.0 Allergy status to penicillin; Z79.899 Other long term (current) drug therapy; Z68.24 Body mass index [BMI] 24.0-24.9, adult
CPT/HCPCS: 36415; 43239; 74018; 80048; 80053; 81003; 82272; 83735; 85025; 85610; 87070; 88305; 88342; 90732; 96360; 99152; 99285; A4620; C9113; G0378; J2250; J3010; J7030

== ENCOUNTER 2018-01-15 11:28 | Inpatient (IN) | payer MEDICARE, BC ==
[~2018-01-15] VITALS: Ht 157.5 cm; Wt 57.0 kg
[~2018-01-15 11:28] MED LIST changes: -ASPI81TA52 PO; -ATOR20TA PO; -CLOP75TA35 PO; +DOCU-28 PO; -DONE10TA7 PO; +DONE5TAB7 PO; -FAMO40TA7 PO; +FERR325T28 PO; -FURO-150 PO; -GABA-532 PO; +GABA800T2 PO; -HYDR-4353 PO; +HYDR-4383 PO; +LISI-600 PO; +OXYB5TAB11 PO; +PANT-47 PO; -POLY17PO2 PO; +PRAV80TA3 PO; -SENN-61 PO; -TOLT4CAP14 PO
[2018-01-15 12:23] LABS: BASOPHILS % (AUTO) 0.1 % (0-1); EOSINOPHILS # (AUTO) 0.2 X10'3 (0-0.9); EOSINOPHILS % (AUTO) 1.4 % (0-6); HEMOGLOBIN 8.2 g/dl (12.0-16.0); LYMPHOCYTES # (AUTO) 0.4 X10'3 (1.1-4.8); MEAN CORPUSCULAR HEMOGLOBIN 28.8 PG (27.0-31.0); MEAN CORPUSCULAR HGB CONC 32.7 % (33.0-36.5); MEAN CORPUSCULAR VOLUME 87.9 FL (78-98); MEAN PLATELET VOLUME 7.3 FL (7.4-10.4); MONOCYTES # (AUTO) 0.8 X10'3 (0-0.9); MONOCYTES % (AUTO) 6.1 % (2-12); NEUTROPHILS % (AUTO) 89.4 % (42-75); PLATELET COUNT 289 X10'3 (140-440); RED BLOOD COUNT 2.85 X10'6 (4.20-5.60); RED CELL DISTRIBUTION WIDTH 13.7 % (11.5-14.5); WHITE BLOOD COUNT 13.4 X10'3 (4.5-11.0)
[2018-01-15 12:35] LABS: ALANINE AMINOTRANSFERASE 12 U/L (12-78); ALBUMIN 2.5 G/DL (3.4-5.0); ALBUMIN/GLOBULIN RATIO 0.7 (1.1-1.5); ALKALINE PHOSPHATASE 82 IU/L (46-116); ANION GAP 7 (8-16); ASPARTATE AMINO TRANSFERASE 15 U/L (10-37); BILIRUBIN,TOTAL 0.4 MG/DL (0.1-1.0); BLOOD UREA NITROGEN 16 MG/DL (7-18); BUN/CREATININE RATIO 18.6 (6.6-38.0); CALCIUM 8.6 MG/DL (8.5-10.1); CHLORIDE 99 MMOL/L (99-107); CREATININE 0.86 MG/DL (0.40-0.90); GLUCOSE 135 MG/DL (70-104); POTASSIUM 4.1 MMOL/L (3.5-5.1); SODIUM 135 MMOL/L (135-145); TOTAL CARBON DIOXIDE 28.7 MMOL/L (24-32); TOTAL PROTEIN 6.2 G/DL (6.4-8.2); eGFR 63 ML/MIN
[2018-01-15 12:42] LABS: INR 1.1 INR; PARTIAL THROMBOPLASTIN TIME 30 SECONDS (22-32); PROTHROMBIN TIME 10.8 SECONDS (9.0-12.0)
[2018-01-15] MEDS ORDERED: levoFLOXACIN-Levaquin 500mg/D5 100 ML IV ONE (13:00)
[2018-01-15] MEDS ORDERED: acetaminophen 325mg tablet PO PRN (13:35)
[2018-01-15] MEDS ORDERED: morphine 2 MG/ML inj. syringe IV PRN ×2 (13:35)
[2018-01-15] MEDS ORDERED: ondansetron/PF 4mg/2ml inj IV PRN (13:35)
[2018-01-15] MEDS ORDERED: magnesium hydroxide 30ml (MOM) UD suspension PO PRN (13:35)
[2018-01-15] MEDS ORDERED: HYDROcodone/acetaminophen 5mg/325mg tablet PO PRN (13:35)
[2018-01-15] MEDS ORDERED: mag hydrox/Alum hydrox/simeth 30ml oral suspension PO PRN (13:35)
[2018-01-15] MEDS ORDERED: [UNRECOGNIZED DRUG - CODE] PO (13:53)
[2018-01-15] MEDS ORDERED: CLOP75TA15 PO (13:54)
[2018-01-15] MEDS: normal saline 1000ml 1,000 ML IV SCH (14:09)
[2018-01-15] MEDS: vancomycin/NS 1 GM ADD-VANTAGE 250 ML IV SCH (14:09)
[2018-01-15 16:00] LABS: CLARITY,URINE SLIGHTLY CLOUDY (Clear); COLOR,URINE YELLOW (Yellow); GLUCOSE, URINE NEGATIVE (Neg); KETONES,URINE NEGATIVE (Neg); LEUKOCYTE ESTERASE ,URINE NEGATIVE (Neg); NITRITES, URINE NEGATIVE (Neg); OCCULT BLOOD,URINE TRACE-INTACT (Neg); PROTEIN,URINE NEGATIVE (Neg); UROBILINOGEN,URINE 0.2 E.U/dL (0.2-1.0)
[2018-01-15 16:11] LABS: UA COLLECTION TYPE CLN CATCH MIDSTREAM
[2018-01-15 16:12] LABS: RBC,URINE NONE SEEN /HPF (0-2)
[2018-01-15 16:13] LABS: BACTERIA,URINE 2+ /HPF (Neg); SQUAMOUS EPITHELIAL CELL,UR MODERATE /LPF (FEW)
[2018-01-15] MEDS: HYDROcodone/acetaminophen 10/325mg tab PO PRN (17:42)
[2018-01-15 17:46] VITALS: BP 123/32
[2018-01-15 20:00] VITALS: BP 112/33
[2018-01-15] MEDS ORDERED: vancomycin/NS 1 GM ADD-VANTAGE 250 ML IV SCH (20:00)
[2018-01-15] MEDS: oxybutynin 5mg tablet PO SCH (20:21)
[2018-01-15] MEDS: ferrous sulfate 325mg tablet PO SCH (20:21)
[2018-01-15] MEDS: traZODone 50mg tablet PO SCH (20:21)
[2018-01-15] MEDS: atorvastatin 20mg tablet PO SCH (20:21)
[2018-01-15] MEDS: donepezil 5mg tablet PO SCH (20:22)
[2018-01-15] MEDS: docusate sod 100mg capsule PO SCH (20:24)
[2018-01-15] MEDS ORDERED: HYDROcodone/acetaminophen 5mg/325mg tablet PO SCH (21:00)
[2018-01-16] VITALS: BP 110/35
[2018-01-16] MEDS: normal saline 1000ml 1,000 ML IV SCH ×3 (01:40→19:31)
[2018-01-16] MEDS: gabapentin 400mg capsule PO SCH ×3 (01:41→16:00)
[2018-01-16] MEDS: oxybutynin 5mg tablet PO SCH ×4 (01:41→20:47)
[2018-01-16] MEDS: HYDROcodone/acetaminophen 10/325mg tab PO PRN ×3 (01:47→20:50)
[2018-01-16] MEDS: sertraline 25mg tablet PO SCH (07:48)
[2018-01-16] MEDS: pantoprazole 40mg Tablet.DR PO SCH (07:49)
[2018-01-16] MEDS: ferrous sulfate 325mg tablet PO SCH ×3 (07:50→20:47)
[2018-01-16] MEDS: sennosides 8.6mg tablet PO SCH (07:50)
[2018-01-16] MEDS: docusate sod 100mg capsule PO SCH ×2 (07:50→20:46)
[2018-01-16 08:00] VITALS: BP 118/44
[2018-01-16] MEDS ORDERED: clopidogrel 75mg tablet PO SCH (08:00)
[2018-01-16] MEDS ORDERED: enoxaparin 40mg/0.4ml syringe SUBCUT SCH (08:00)
[2018-01-16] MEDS: lisinopril 20mg tablet PO SCH (08:02)
[2018-01-16] MEDS: CefTRIAXone/D5W-Rocephin 1gm 50 ML IV SCH (08:08)
[2018-01-16 12:06] VITALS: BP 114/41
[2018-01-16] MEDS ORDERED: gadopentetate dimeglumine 7.5 MMOL/15 ML syringe ONE (15:02)
[2018-01-16] MEDS: vancomycin/NS 1 GM ADD-VANTAGE 250 ML IV SCH (16:01)
[2018-01-16 19:00] VITALS: BP 119/46
[2018-01-16] MEDS: donepezil 5mg tablet PO SCH (20:47)
[2018-01-16] MEDS: lactobacillus rhamnosus 10,000 MMU CELLS/CAPSULE PO SCH (20:47)
[2018-01-16] MEDS: traZODone 50mg tablet PO SCH (20:47)
[2018-01-16] MEDS: atorvastatin 20mg tablet PO SCH (20:47)
[2018-01-17] VITALS: BP 100/29
[2018-01-17] MEDS: gabapentin 400mg capsule PO SCH ×4 (00:05→23:44)
[2018-01-17] MEDS: oxybutynin 5mg tablet PO SCH ×4 (01:48→20:25)
[2018-01-17] MEDS: normal saline 1000ml 1,000 ML IV SCH ×3 (01:48→23:44)
[2018-01-17 05:34] LABS: ALBUMIN 2.1 G/DL (3.4-5.0); ANION GAP 10 (8-16); BLOOD UREA NITROGEN 16 MG/DL (7-18); BUN/CREATININE RATIO 20.8 (6.6-38.0); CALCIUM 8.3 MG/DL (8.5-10.1); CHLORIDE 106 MMOL/L (99-107); CREATININE 0.77 MG/DL (0.40-0.90); GLUCOSE 86 MG/DL (70-104); POTASSIUM 3.8 MMOL/L (3.5-5.1); SODIUM 141 MMOL/L (135-145); TOTAL CARBON DIOXIDE 25.1 MMOL/L (24-32); eGFR 71 ML/MIN
[2018-01-17 07:38] VITALS: BP 109/57
[2018-01-17] MEDS: CefTRIAXone/D5W-Rocephin 1gm 50 ML IV SCH (08:33)
[2018-01-17] MEDS: docusate sod 100mg capsule PO SCH ×2 (08:38→20:26)
[2018-01-17] MEDS: lactobacillus rhamnosus 10,000 MMU CELLS/CAPSULE PO SCH ×2 (08:39→20:26)
[2018-01-17] MEDS: ferrous sulfate 325mg tablet PO SCH ×3 (08:40→20:26)
[2018-01-17] MEDS: sennosides 8.6mg tablet PO SCH (08:43)
[2018-01-17] MEDS: pantoprazole 40mg Tablet.DR PO SCH (08:43)
[2018-01-17] MEDS: lisinopril 20mg tablet PO SCH (08:44)
[2018-01-17] MEDS: sertraline 25mg tablet PO SCH (08:45)
[2018-01-17 10:21] VITALS: BP 109/57
[2018-01-17 11:30] VITALS: BP 160/51
[2018-01-17 11:58] LABS: BASOPHILS % (AUTO) 0.4 % (0-1); EOSINOPHILS # (AUTO) 0.2 X10'3 (0-0.9); EOSINOPHILS % (AUTO) 2.7 % (0-6); HEMOGLOBIN 7.6 g/dl (12.0-16.0); LYMPHOCYTES # (AUTO) 0.5 X10'3 (1.1-4.8); LYMPHOCYTES % (AUTO) 6.5 % (21-51); MEAN CORPUSCULAR HEMOGLOBIN 29.5 PG (27.0-31.0); MEAN CORPUSCULAR HGB CONC 33.2 % (33.0-36.5); MEAN CORPUSCULAR VOLUME 88.7 FL (78-98); MEAN PLATELET VOLUME 7.4 FL (7.4-10.4); MONOCYTES # (AUTO) 0.6 X10'3 (0-0.9); NEUTROPHILS % (AUTO) 83.4 % (42-75); PLATELET COUNT 281 X10'3 (140-440); RED BLOOD COUNT 2.59 X10'6 (4.20-5.60); RED CELL DISTRIBUTION WIDTH 13.9 % (11.5-14.5); WHITE BLOOD COUNT 8.4 X10'3 (4.5-11.0)
[2018-01-17 12:17] LABS: ALANINE AMINOTRANSFERASE 15 U/L (12-78); ALBUMIN 1.9 G/DL (3.4-5.0); ALBUMIN/GLOBULIN RATIO 0.5 (1.1-1.5); ALKALINE PHOSPHATASE 75 IU/L (46-116); ANION GAP 7 (8-16); ASPARTATE AMINO TRANSFERASE 34 U/L (10-37); BILIRUBIN,TOTAL 0.2 MG/DL (0.1-1.0); BLOOD UREA NITROGEN 14 MG/DL (7-18); BUN/CREATININE RATIO 18.4 (6.6-38.0); CALCIUM 8.1 MG/DL (8.5-10.1); CHLORIDE 107 MMOL/L (99-107); CREATININE 0.76 MG/DL (0.40-0.90); GLUCOSE 97 MG/DL (70-104); POTASSIUM 3.8 MMOL/L (3.5-5.1); SODIUM 140 MMOL/L (135-145); TOTAL PROTEIN 5.8 G/DL (6.4-8.2); eGFR 73 ML/MIN
[2018-01-17 12:29] LABS: PARTIAL THROMBOPLASTIN TIME 28 SECONDS (22-32); PROTHROMBIN TIME 10.6 SECONDS (9.0-12.0)
[2018-01-17 13:36] VITALS: BP 122/44
[2018-01-17] MEDS: vancomycin/NS 1 GM ADD-VANTAGE 250 ML IV SCH (13:47)
[2018-01-17 18:00] VITALS: BP 125/44
[2018-01-17] MEDS: atorvastatin 20mg tablet PO SCH (20:25)
[2018-01-17] MEDS: donepezil 5mg tablet PO SCH (20:25)
[2018-01-17] MEDS: traZODone 50mg tablet PO SCH (20:25)
[2018-01-18] VITALS: BP 122/38
[2018-01-18] MEDS: oxybutynin 5mg tablet PO SCH ×4 (02:34→20:52)
[2018-01-18 06:04] LABS: BASOPHILS % (AUTO) 0.5 % (0-1); EOSINOPHILS # (AUTO) 0.2 X10'3 (0-0.9); EOSINOPHILS % (AUTO) 3.1 % (0-6); HEMATOCRIT 23.4 % (35.0-45.0); HEMOGLOBIN 7.6 g/dl (12.0-16.0); LYMPHOCYTES # (AUTO) 0.6 X10'3 (1.1-4.8); LYMPHOCYTES % (AUTO) 9.3 % (21-51); MEAN CORPUSCULAR HEMOGLOBIN 29.3 PG (27.0-31.0); MEAN CORPUSCULAR HGB CONC 32.6 % (33.0-36.5); MEAN CORPUSCULAR VOLUME 89.9 FL (78-98); MEAN PLATELET VOLUME 7.7 FL (7.4-10.4); MONOCYTES # (AUTO) 0.5 X10'3 (0-0.9); MONOCYTES % (AUTO) 6.9 % (2-12); NEUTROPHILS # (AUTO) 5.5 X10'3 (1.8-7.7); NEUTROPHILS % (AUTO) 80.2 % (42-75); PLATELET COUNT 271 X10'3 (140-440); RED BLOOD COUNT 2.61 X10'6 (4.20-5.60); RED CELL DISTRIBUTION WIDTH 13.5 % (11.5-14.5); WHITE BLOOD COUNT 6.8 X10'3 (4.5-11.0)
[2018-01-18 06:33] LABS: ALANINE AMINOTRANSFERASE 13 U/L (12-78); ALBUMIN 1.9 G/DL (3.4-5.0); ALBUMIN/GLOBULIN RATIO 0.5 (1.1-1.5); ALKALINE PHOSPHATASE 80 IU/L (46-116); ANION GAP 10 (8-16); ASPARTATE AMINO TRANSFERASE 37 U/L (10-37); BILIRUBIN,TOTAL 0.2 MG/DL (0.1-1.0); BLOOD UREA NITROGEN 11 MG/DL (7-18); BUN/CREATININE RATIO 18.6 (6.6-38.0); CALCIUM 8.3 MG/DL (8.5-10.1); CHLORIDE 109 MMOL/L (99-107); CREATININE 0.59 MG/DL (0.40-0.90); GLUCOSE 78 MG/DL (70-104); POTASSIUM 3.8 MMOL/L (3.5-5.1); SODIUM 142 MMOL/L (135-145); TOTAL CARBON DIOXIDE 22.7 MMOL/L (24-32); TOTAL PROTEIN 5.5 G/DL (6.4-8.2); eGFR > 90 ML/MIN
[2018-01-18 07:13] VITALS: BP 144/55
[2018-01-18] MEDS: CefTRIAXone/D5W-Rocephin 1gm 50 ML IV SCH (08:00)
[2018-01-18] MEDS: pantoprazole 40mg Tablet.DR PO SCH (09:03)
[2018-01-18] MEDS: docusate sod 100mg capsule PO SCH ×2 (09:03→20:51)
[2018-01-18] MEDS: enoxaparin 40mg/0.4ml syringe SUBCUT SCH (09:03)
[2018-01-18] MEDS: sennosides 8.6mg tablet PO SCH (09:03)
[2018-01-18] MEDS: gabapentin 400mg capsule PO SCH ×2 (09:04→16:00)
[2018-01-18] MEDS: sertraline 25mg tablet PO SCH (09:04)
[2018-01-18] MEDS: ferrous sulfate 325mg tablet PO SCH ×3 (09:04→20:52)
[2018-01-18] MEDS: lactobacillus rhamnosus 10,000 MMU CELLS/CAPSULE PO SCH ×2 (09:04→20:51)
[2018-01-18] MEDS: clopidogrel 75mg tablet PO SCH (09:04)
[2018-01-18] MEDS: lisinopril 20mg tablet PO SCH (09:05)
[2018-01-18] MEDS: HYDROcodone/acetaminophen 10/325mg tab PO PRN ×2 (09:16→14:17)
[2018-01-18 11:00] VITALS: BP 140/83
[2018-01-18] MEDS ORDERED: VANCOMYCIN LEVEL IV NR (13:30)
[2018-01-18] MEDS: normal saline 1000ml 1,000 ML IV SCH ×3 (14:17→21:03)
[2018-01-18] MEDS: vancomycin/NS 1 GM ADD-VANTAGE 250 ML IV SCH (14:19)
[2018-01-18 20:00] VITALS: BP 113/42
[2018-01-18] MEDS: atorvastatin 20mg tablet PO SCH (20:52)
[2018-01-18] MEDS: traZODone 50mg tablet PO SCH (20:52)
[2018-01-18] MEDS: donepezil 5mg tablet PO SCH (20:52)
[2018-01-19] VITALS: BP 123/33
[2018-01-19] MEDS: gabapentin 400mg capsule PO SCH ×3 (00:21→17:25)
[2018-01-19] MEDS: normal saline 1000ml 1,000 ML IV SCH ×2 (02:37→12:18)
[2018-01-19] MEDS: oxybutynin 5mg tablet PO SCH ×4 (02:47→20:41)
[2018-01-19 05:08] LABS: BASOPHILS % (AUTO) 0.8 % (0-1); EOSINOPHILS # (AUTO) 0.2 X10'3 (0-0.9); HEMOGLOBIN 7.8 g/dl (12.0-16.0); LYMPHOCYTES # (AUTO) 0.5 X10'3 (1.1-4.8); LYMPHOCYTES % (AUTO) 9.5 % (21-51); MEAN CORPUSCULAR HEMOGLOBIN 28.8 PG (27.0-31.0); MEAN CORPUSCULAR HGB CONC 32.6 % (33.0-36.5); MEAN CORPUSCULAR VOLUME 88.3 FL (78-98); MEAN PLATELET VOLUME 7.3 FL (7.4-10.4); MONOCYTES # (AUTO) 0.4 X10'3 (0-0.9); NEUTROPHILS # (AUTO) 4.3 X10'3 (1.8-7.7); NEUTROPHILS % (AUTO) 77.7 % (42-75); PLATELET COUNT 318 X10'3 (140-440); RED BLOOD COUNT 2.72 X10'6 (4.20-5.60); RED CELL DISTRIBUTION WIDTH 13.7 % (11.5-14.5); WHITE BLOOD COUNT 5.6 X10'3 (4.5-11.0)
[2018-01-19 05:32] LABS: ALANINE AMINOTRANSFERASE 15 U/L (12-78); ALBUMIN 1.9 G/DL (3.4-5.0); ALBUMIN/GLOBULIN RATIO 0.5 (1.1-1.5); ALKALINE PHOSPHATASE 83 IU/L (46-116); ANION GAP 8 (8-16); ASPARTATE AMINO TRANSFERASE 24 U/L (10-37); BILIRUBIN,TOTAL 0.2 MG/DL (0.1-1.0); BLOOD UREA NITROGEN 6 MG/DL (7-18); BUN/CREATININE RATIO 10.2 (6.6-38.0); CALCIUM 8.1 MG/DL (8.5-10.1); CHLORIDE 109 MMOL/L (99-107); CREATININE 0.59 MG/DL (0.40-0.90); GLUCOSE 97 MG/DL (70-104); POTASSIUM 3.7 MMOL/L (3.5-5.1); SODIUM 144 MMOL/L (135-145); TOTAL PROTEIN 5.9 G/DL (6.4-8.2); eGFR > 90 ML/MIN
[2018-01-19 06:58] VITALS: BP 151/45
[2018-01-19] MEDS: sertraline 25mg tablet PO SCH (08:10)
[2018-01-19] MEDS: pantoprazole 40mg Tablet.DR PO SCH (08:11)
[2018-01-19] MEDS: sennosides 8.6mg tablet PO SCH (08:11)
[2018-01-19] MEDS: clopidogrel 75mg tablet PO SCH (08:11)
[2018-01-19] MEDS: ferrous sulfate 325mg tablet PO SCH ×3 (08:11→20:41)
[2018-01-19] MEDS: docusate sod 100mg capsule PO SCH ×2 (08:11→20:41)
[2018-01-19] MEDS: lisinopril 20mg tablet PO SCH (08:11)
[2018-01-19] MEDS: lactobacillus rhamnosus 10,000 MMU CELLS/CAPSULE PO SCH ×2 (08:12→20:41)
[2018-01-19] MEDS: enoxaparin 40mg/0.4ml syringe SUBCUT SCH (08:13)
[2018-01-19] MEDS: HYDROcodone/acetaminophen 10/325mg tab PO PRN ×2 (08:20→19:00)
[2018-01-19 11:57] VITALS: BP 138/42
[2018-01-19] MEDS: vancomycin inj 1,250 MG in normal saline 250ml IV soln 250 ML IV SCH (13:45)
[2018-01-19 20:00] VITALS: BP 160/62
[2018-01-19] MEDS: traZODone 50mg tablet PO SCH (20:41)
[2018-01-19] MEDS: atorvastatin 20mg tablet PO SCH (20:41)
[2018-01-19] MEDS: donepezil 5mg tablet PO SCH (20:41)
[2018-01-20] VITALS: BP 122/49
[2018-01-20] MEDS: gabapentin 400mg capsule PO SCH ×3 (00:34→15:59)
[2018-01-20] MEDS: normal saline 1000ml 1,000 ML IV SCH ×2 (00:34→12:38)
[2018-01-20] MEDS: oxybutynin 5mg tablet PO SCH ×4 (02:45→20:17)
[2018-01-20] MEDS: HYDROcodone/acetaminophen 10/325mg tab PO PRN ×2 (02:48→10:31)
[2018-01-20 06:21] LABS: BASOPHILS % (AUTO) 0.5 % (0-1); EOSINOPHILS # (AUTO) 0.2 X10'3 (0-0.9); EOSINOPHILS % (AUTO) 3.7 % (0-6); HEMATOCRIT 22.4 % (35.0-45.0); HEMOGLOBIN 7.4 g/dl (12.0-16.0); LYMPHOCYTES # (AUTO) 0.7 X10'3 (1.1-4.8); MEAN CORPUSCULAR HEMOGLOBIN 28.9 PG (27.0-31.0); MEAN CORPUSCULAR HGB CONC 32.9 % (33.0-36.5); MEAN CORPUSCULAR VOLUME 87.9 FL (78-98); MEAN PLATELET VOLUME 7.3 FL (7.4-10.4); MONOCYTES # (AUTO) 0.5 X10'3 (0-0.9); MONOCYTES % (AUTO) 8.9 % (2-12); NEUTROPHILS # (AUTO) 4.2 X10'3 (1.8-7.7); NEUTROPHILS % (AUTO) 74.9 % (42-75); PLATELET COUNT 294 X10'3 (140-440); RED BLOOD COUNT 2.55 X10'6 (4.20-5.60); RED CELL DISTRIBUTION WIDTH 14.1 % (11.5-14.5); WHITE BLOOD COUNT 5.6 X10'3 (4.5-11.0)
[2018-01-20 06:36] LABS: ALANINE AMINOTRANSFERASE 13 U/L (12-78); ALBUMIN 1.8 G/DL (3.4-5.0); ALBUMIN/GLOBULIN RATIO 0.5 (1.1-1.5); ALKALINE PHOSPHATASE 79 IU/L (46-116); ANION GAP 4 (8-16); ASPARTATE AMINO TRANSFERASE 15 U/L (10-37); BILIRUBIN,TOTAL 0.2 MG/DL (0.1-1.0); BLOOD UREA NITROGEN 5 MG/DL (7-18); BUN/CREATININE RATIO 9.3 (6.6-38.0); CALCIUM 7.8 MG/DL (8.5-10.1); CHLORIDE 110 MMOL/L (99-107); CREATININE 0.54 MG/DL (0.40-0.90); GLUCOSE 105 MG/DL (70-104); POTASSIUM 3.3 MMOL/L (3.5-5.1); SODIUM 143 MMOL/L (135-145); TOTAL CARBON DIOXIDE 29.5 MMOL/L (24-32); TOTAL PROTEIN 5.4 G/DL (6.4-8.2); eGFR > 90 ML/MIN
[2018-01-20 07:55] VITALS: BP 131/86
[2018-01-20] MEDS: enoxaparin 40mg/0.4ml syringe SUBCUT SCH (08:29)
[2018-01-20] MEDS: lactobacillus rhamnosus 10,000 MMU CELLS/CAPSULE PO SCH ×2 (08:30→20:17)
[2018-01-20] MEDS: sennosides 8.6mg tablet PO SCH (08:30)
[2018-01-20] MEDS: pantoprazole 40mg Tablet.DR PO SCH (08:31)
[2018-01-20] MEDS: sertraline 25mg tablet PO SCH (08:31)
[2018-01-20] MEDS: docusate sod 100mg capsule PO SCH ×2 (08:31→20:17)
[2018-01-20] MEDS: lisinopril 20mg tablet PO SCH (08:31)
[2018-01-20] MEDS: ferrous sulfate 325mg tablet PO SCH ×3 (08:31→20:17)
[2018-01-20] MEDS: clopidogrel 75mg tablet PO SCH (08:31)
[2018-01-20] MEDS ORDERED: magnesium 2GM in 50ml NS 50 ML IV PRN (09:05)
[2018-01-20] MEDS ORDERED: magnesium Cl slow-release 64mg tablet PO PRN (09:05)
[2018-01-20] MEDS ORDERED: potassium Cl 20 mEq SR tablet PO PRN (09:05)
[2018-01-20] MEDS ORDERED: potassium Cl 40MEQ/NS 500ml 500 ML IV PRN ×2 (09:05)
[2018-01-20] MEDS ORDERED: magnesium 4gm in 100ml NS 100 ML IV PRN (09:05)
[2018-01-20] MEDS: potassium Cl 20 mEq SR tablet PO PRN ×3 (10:22→17:29)
[2018-01-20 11:26] VITALS: BP 157/59
[2018-01-20] MEDS: vancomycin inj 1,250 MG in normal saline 250ml IV soln 250 ML IV SCH (13:42)
[2018-01-20] MEDS: Protein Shake (high protein) 240ml (8oz) cup PO SCH ×2 (18:00→18:28)
[2018-01-20 20:00] VITALS: BP 159/54
[2018-01-20] MEDS: atorvastatin 20mg tablet PO SCH (20:17)
[2018-01-20] MEDS: traZODone 50mg tablet PO SCH (20:17)
[2018-01-20] MEDS: donepezil 5mg tablet PO SCH (20:17)
[2018-01-21] VITALS: BP 161/70
[2018-01-21] MEDS: normal saline 1000ml 1,000 ML IV SCH ×2 (00:18→10:37)
[2018-01-21] MEDS: gabapentin 400mg capsule PO SCH ×2 (00:19→08:17)
[2018-01-21] MEDS: oxybutynin 5mg tablet PO SCH ×3 (02:00→13:05)
[2018-01-21 05:24] LABS: BASOPHILS # (AUTO) 0.1 X10'3 (0-0.2); BASOPHILS % (AUTO) 0.7 % (0-1); EOSINOPHILS # (AUTO) 0.1 X10'3 (0-0.9); EOSINOPHILS % (AUTO) 1.4 % (0-6); HEMATOCRIT 25.1 % (35.0-45.0); HEMOGLOBIN 8.1 g/dl (12.0-16.0); LYMPHOCYTES # (AUTO) 0.7 X10'3 (1.1-4.8); LYMPHOCYTES % (AUTO) 7.8 % (21-51); MEAN CORPUSCULAR HEMOGLOBIN 28.7 PG (27.0-31.0); MEAN CORPUSCULAR HGB CONC 32.5 % (33.0-36.5); MEAN CORPUSCULAR VOLUME 88.3 FL (78-98); MEAN PLATELET VOLUME 7.3 FL (7.4-10.4); MONOCYTES # (AUTO) 0.5 X10'3 (0-0.9); MONOCYTES % (AUTO) 6.1 % (2-12); PLATELET COUNT 343 X10'3 (140-440); RED BLOOD COUNT 2.84 X10'6 (4.20-5.60); RED CELL DISTRIBUTION WIDTH 13.9 % (11.5-14.5); WHITE BLOOD COUNT 8.3 X10'3 (4.5-11.0)
[2018-01-21 05:55] LABS: ALANINE AMINOTRANSFERASE 14 U/L (12-78); ALBUMIN/GLOBULIN RATIO 0.5 (1.1-1.5); ALKALINE PHOSPHATASE 90 IU/L (46-116); ANION GAP 6 (8-16); ASPARTATE AMINO TRANSFERASE 19 U/L (10-37); BILIRUBIN,TOTAL 0.2 MG/DL (0.1-1.0); BLOOD UREA NITROGEN 4 MG/DL (7-18); BUN/CREATININE RATIO 6.9 (6.6-38.0); CALCIUM 8.1 MG/DL (8.5-10.1); CHLORIDE 108 MMOL/L (99-107); CREATININE 0.58 MG/DL (0.40-0.90); GLUCOSE 123 MG/DL (70-104); MAGNESIUM 1.5 MG/DL (1.5-2.4); POTASSIUM 4.1 MMOL/L (3.5-5.1); SODIUM 142 MMOL/L (135-145); TOTAL CARBON DIOXIDE 27.8 MMOL/L (24-32); TOTAL PROTEIN 6.1 G/DL (6.4-8.2); eGFR > 90 ML/MIN
[2018-01-21 07:00] VITALS: BP 158/71
[2018-01-21] MEDS: Protein Shake (high protein) 240ml (8oz) cup PO SCH ×2 (08:00→13:08)
[2018-01-21] MEDS: docusate sod 100mg capsule PO SCH (08:18)
[2018-01-21] MEDS: clopidogrel 75mg tablet PO SCH (08:18)
[2018-01-21] MEDS: pantoprazole 40mg Tablet.DR PO SCH (08:18)
[2018-01-21] MEDS: lisinopril 20mg tablet PO SCH (08:18)
[2018-01-21] MEDS: sertraline 25mg tablet PO SCH (08:18)
[2018-01-21] MEDS: lactobacillus rhamnosus 10,000 MMU CELLS/CAPSULE PO SCH (08:18)
[2018-01-21] MEDS: enoxaparin 40mg/0.4ml syringe SUBCUT SCH (08:18)
[2018-01-21] MEDS: ferrous sulfate 325mg tablet PO SCH ×2 (08:18→13:05)
[2018-01-21] MEDS: sennosides 8.6mg tablet PO SCH (08:19)
[2018-01-21 09:51] LABS: OCCULT BLOOD STOOL NEGATIVE (Neg)
[2018-01-21 11:00] VITALS: BP 148/54
[2018-01-21] MEDS: vancomycin inj 1,250 MG in normal saline 250ml IV soln 250 ML IV SCH (13:06)
[2018-01-22] MEDS ORDERED: VANCOMYCIN LEVEL IV NR (13:30)
== END 2018-01-21 16:10 | DRG 565 ==
LOC: ER 11:29 → ED HOLD 13:31 → EDBEDREQ 16:26 → SUR 3N 16:55
PROVIDERS: ADMIT Internal Medicine; ATTEND Family Medicine
PROC: BQ37YZZ Magnetic Resonance Imaging (MRI) of Right Knee using Other Contrast (ICD-10-PCS; principal; 2018-01-16)
DX: T87.43 Infection of amputation stump, right lower extremity (principal); L03.115 Cellulitis of right lower limb; L02.415 Cutaneous abscess of right lower limb; M86.8X6 Other osteomyelitis, lower leg; G93.49 Other encephalopathy; E44.0 Moderate protein-calorie malnutrition; F32.9 Major depressive disorder, single episode, unspecified; I73.9 Peripheral vascular disease, unspecified; D64.9 Anemia, unspecified; Z60.2 Problems related to living alone; E78.00 Pure hypercholesterolemia, unspecified; E78.5 Hyperlipidemia, unspecified; F03.90 Unspecified dementia, unspecified severity, without behavioral disturbance, psychotic disturbance, mood disturbance, and anxiety; G47.00 Insomnia, unspecified; G89.29 Other chronic pain; I10 Essential (primary) hypertension; I25.10 Atherosclerotic heart disease of native coronary artery without angina pectoris; Y83.5 Amputation of limb(s) as the cause of abnormal reaction of the patient, or of later complication, without mention of misadventure at the time of the procedure; Z66 Do not resuscitate; Z89.511 Acquired absence of right leg below knee; Z79.899 Other long term (current) drug therapy; Z88.0 Allergy status to penicillin; Z68.23 Body mass index [BMI] 23.0-23.9, adult
CPT/HCPCS: 36415; 71045; 73560; 73720; 80048; 80053; 80202; 81001; 82272; 83605; 83735; 84145; 85025; 85610; 85651; 85730; 87040; 87070; 87088; 93005; 96365; 99285; A9579; G0378; J0696; J1650; J1956; J2270; J3370; J7030

== ENCOUNTER 2018-06-03 08:24 | Emergency (ER) | payer MEDICARE, BC ==
[~2018-06-03] VITALS: Ht 170.2 cm; Wt 75.0 kg
[~2018-06-03 08:24] MED LIST changes: +CLOP75TA15 PO; +GABA800T11 PO; -GABA800T2 PO; +[UNRECOGNIZED DRUG - CODE] PO
[2018-06-03] MEDS ORDERED: normal saline 1000ML IV soln IVB ONE (08:30)
[2018-06-03] MEDS ORDERED: CefTRIAXone 2gm/D5W 50ml 50 ML IV ONE (08:40)
[2018-06-03 09:30] LABS: BASOPHILS % (AUTO) 0.1 % (0-1); EOSINOPHILS % (AUTO) 0.1 % (0-6); HEMOGLOBIN 9.2 g/dl (12.0-16.0); LYMPHOCYTES # (AUTO) 0.2 X10'3 (1.1-4.8); LYMPHOCYTES % (AUTO) 1.1 % (21-51); MEAN CORPUSCULAR HGB CONC 32.9 g/dL (33.0-36.5); MEAN CORPUSCULAR VOLUME 85.1 FL (78-98); MEAN PLATELET VOLUME 7.6 FL (7.4-10.4); MONOCYTES # (AUTO) 0.3 X10'3 (0-0.9); MONOCYTES % (AUTO) 1.9 % (2-12); NEUTROPHILS # (AUTO) 13.1 X10'3 (1.8-7.7); NEUTROPHILS % (AUTO) 96.8 % (42-75); PLATELET COUNT 228 X10'3 (140-440); RED BLOOD COUNT 3.29 X10'6 (4.20-5.60); WHITE BLOOD COUNT 13.5 X10'3 (4.5-11.0)
[2018-06-03] MEDS ORDERED: acetaminophen 325mg tablet PO STA (09:40)
[2018-06-03 09:45] LABS: ALANINE AMINOTRANSFERASE 17 U/L (12-78); ALBUMIN/GLOBULIN RATIO 0.8 (1.1-1.5); ALKALINE PHOSPHATASE 118 IU/L (46-116); ANION GAP 8 (8-16); ASPARTATE AMINO TRANSFERASE 14 U/L (10-37); BILIRUBIN,TOTAL 0.3 MG/DL (0.1-1.0); BLOOD UREA NITROGEN 24 MG/DL (7-18); BUN/CREATININE RATIO 25.3 (6.6-38.0); CALCIUM 8.9 MG/DL (8.5-10.1); CHLORIDE 101 MMOL/L (99-107); CREATININE 0.95 MG/DL (0.40-0.90); GLUCOSE 145 MG/DL (70-104); POTASSIUM 4.6 MMOL/L (3.5-5.1); SODIUM 139 MMOL/L (135-145); TOTAL CARBON DIOXIDE 29.8 MMOL/L (24-32); TOTAL PROTEIN 6.6 G/DL (6.4-8.2); eGFR 56 ML/MIN
[2018-06-03 10:22] LABS: CLARITY,URINE CLOUDY (Clear); COLOR,URINE YELLOW (Yellow); GLUCOSE, URINE NEGATIVE (Neg); KETONES,URINE NEGATIVE (Neg); LEUKOCYTE ESTERASE ,URINE LARGE (Neg); NITRITES, URINE NEGATIVE (Neg); OCCULT BLOOD,URINE LARGE (Neg); PH,URINE 6.5 (4.8-8.0); PROTEIN,URINE 100 mg/dl (Neg); UROBILINOGEN,URINE 0.2 E.U/dL (0.2-1.0)
[2018-06-03 10:26] LABS: UA COLLECTION TYPE STRAIGHT CATH
[2018-06-03 10:32] LABS: WBC,URINE 50-100 /HPF (0-4)
[2018-06-03] MEDS ORDERED: CEPH500C5 PO (10:32)
[2018-06-03 10:33] LABS: BACTERIA,URINE 4+ /HPF (Neg); RBC,URINE 20-50 /HPF (0-2); SQUAMOUS EPITHELIAL CELL,UR FEW /LPF (FEW)
[2018-06-03 10:34] LABS: MUCUS STRANDS FEW /LPF (Neg); WBC CLUMPS,URINE MODERATE /HPF (NEGATIVE)
--- NOTE | 2018-06-03 11:02 | NUR ---
ALISHA CARGO INITIATED, ETA 1241
--- NOTE | 2018-06-03 12:04 | NUR ---
OMI AT BEDSIDE, PATIENT UNABLE TO TRANSFER INTO WHEELCHAIR, CARE A VAN TO CALL FOR [facility] TRANSPORT[facility].
[2018-06-03 12:51] VITALS: BP 107/50
== END 2018-06-03 12:58 | disposition home or self-care (01) ==
LOC: ER 08:25
DX: N39.0 Urinary tract infection, site not specified (principal); F03.90 Unspecified dementia, unspecified severity, without behavioral disturbance, psychotic disturbance, mood disturbance, and anxiety; R41.82 Altered mental status, unspecified; I25.10 Atherosclerotic heart disease of native coronary artery without angina pectoris; E78.00 Pure hypercholesterolemia, unspecified; I12.9 Hypertensive chronic kidney disease with stage 1 through stage 4 chronic kidney disease, or unspecified chronic kidney disease; N18.9 Chronic kidney disease, unspecified; G89.29 Other chronic pain; Z98.890 Other specified postprocedural states; Z88.0 Allergy status to penicillin; Z79.899 Other long term (current) drug therapy; Z60.2 Problems related to living alone
CPT/HCPCS: 36415; 70450; 71045; 80053; 81001; 83605; 84145; 85025; 87040; 87088; 87186; 93005; 96361; 96365; 99284; J0696; J7030; P9612; 87077

== ENCOUNTER 2019-03-18 06:40 | Emergency (ER) | payer MEDICARE, BC ==
[~2019-03-18] VITALS: Ht 152.4 cm; Wt 59.1 kg
[~2019-03-18 06:40] MED LIST changes: +CEPH500C5 PO; -OXYB5TAB11 PO; +OXYB5TAB16 PO; -TRAZ-218 PO; +TRAZ-251 PO
[2019-03-18 07:13] LABS: CLARITY,URINE CLEAR (Clear); COLOR,URINE YELLOW (Yellow); GLUCOSE, URINE NEGATIVE (Neg); KETONES,URINE NEGATIVE (Neg); LEUKOCYTE ESTERASE ,URINE NEGATIVE (Neg); NITRITES, URINE NEGATIVE (Neg); OCCULT BLOOD,URINE NEGATIVE (Neg); PROTEIN,URINE TRACE mg/dl (Neg)
[2019-03-18 07:15] LABS: BASOPHILS % (AUTO) 0.7 % (0-1); EOSINOPHILS % (AUTO) 0.1 % (0-6); HEMOGLOBIN 9.5 g/dl (12.0-16.0); LYMPHOCYTES # (AUTO) 0.3 X10'3 (1.1-4.8); LYMPHOCYTES % (AUTO) 10.9 % (21-51); MEAN CORPUSCULAR HEMOGLOBIN 28.7 PG (27.0-31.0); MEAN CORPUSCULAR HGB CONC 33.9 g/dL (33.0-36.5); MEAN CORPUSCULAR VOLUME 84.6 FL (78-98); MONOCYTES # (AUTO) 0.3 X10'3 (0-0.9); MONOCYTES % (AUTO) 11.3 % (2-12); PLATELET COUNT 163 X10'3 (140-440); RED BLOOD COUNT 3.31 X10'6 (4.20-5.60); WHITE BLOOD COUNT 2.6 X10'3 (4.5-11.0)
[2019-03-18 07:16] LABS: UA COLLECTION TYPE STRAIGHT CATH
[2019-03-18 07:28] LABS: ALANINE AMINOTRANSFERASE 18 U/L (12-78); ALBUMIN 2.9 G/DL (3.4-5.0); ALBUMIN/GLOBULIN RATIO 0.8 (1.1-1.5); ALKALINE PHOSPHATASE 111 IU/L (46-116); ANION GAP 5 (8-16); ASPARTATE AMINO TRANSFERASE 18 U/L (10-37); BILIRUBIN,TOTAL 0.3 MG/DL (0.1-1.0); BLOOD UREA NITROGEN 13 MG/DL (7-18); BUN/CREATININE RATIO 21.7 (6.6-38.0); CALCIUM 8.2 MG/DL (8.5-10.1); CHLORIDE 95 MMOL/L (99-107); GLUCOSE 110 MG/DL (70-104); POTASSIUM 3.8 MMOL/L (3.5-5.1); SODIUM 132 MMOL/L (135-145); TOTAL CARBON DIOXIDE 32.2 MMOL/L (24-32); TOTAL PROTEIN 6.5 G/DL (6.4-8.2); eGFR > 90 ML/MIN
[2019-03-18 07:37] LABS: TOTAL CELLS COUNTED 100
[2019-03-18 07:39] LABS: ANISOCYTOSIS FEW; PLATELET ESTIMATE NORMAL
[2019-03-18 07:40] LABS: POIKILOCYTOSIS FEW
[2019-03-18 07:46] LABS: BACTERIA,URINE NONE SEEN /HPF (Neg); MUCUS STRANDS FEW /LPF (Neg); RBC,URINE NONE SEEN /HPF (0-2); SQUAMOUS EPITHELIAL CELL,UR FEW /LPF (FEW); WBC,URINE NONE SEEN /HPF (0-4)
[2019-03-18 09:47] VITALS: BP 137/52
== END 2019-03-18 10:05 | disposition home or self-care (01) ==
LOC: ER 06:41
DX: R19.7 Diarrhea, unspecified (principal); R11.2 Nausea with vomiting, unspecified; I25.10 Atherosclerotic heart disease of native coronary artery without angina pectoris; E78.00 Pure hypercholesterolemia, unspecified; G89.29 Other chronic pain; I12.9 Hypertensive chronic kidney disease with stage 1 through stage 4 chronic kidney disease, or unspecified chronic kidney disease; N18.9 Chronic kidney disease, unspecified; Z98.890 Other specified postprocedural states; Z89.511 Acquired absence of right leg below knee; Z79.899 Other long term (current) drug therapy; Z88.0 Allergy status to penicillin
CPT/HCPCS: 80053; 81001; 85025; 87502; 87503; 99284

== ENCOUNTER 2019-06-11 07:59 | Emergency (ER) | payer MEDICARE, BC ==
[~2019-06-11] VITALS: Ht 172.7 cm; Wt 90.0 kg
[~2019-06-11 07:59] MED LIST changes: -CEPH500C5 PO
[2019-06-11] MEDS ORDERED: normal saline 1000ML IV soln IVB ONE (08:40)
[2019-06-11 09:01] LABS: BASOPHILS % (AUTO) 0.7 % (0-1); EOSINOPHILS # (AUTO) 0.1 X10'3 (0-0.9); HEMATOCRIT 30.7 % (35.0-45.0); HEMOGLOBIN 9.8 g/dl (12.0-16.0); LYMPHOCYTES # (AUTO) 0.3 X10'3 (1.1-4.8); LYMPHOCYTES % (AUTO) 11.3 % (21-51); MEAN CORPUSCULAR HEMOGLOBIN 28.2 PG (27.0-31.0); MEAN CORPUSCULAR HGB CONC 31.9 g/dL (33.0-36.5); MEAN CORPUSCULAR VOLUME 88.6 FL (78-98); MEAN PLATELET VOLUME 7.3 FL (7.4-10.4); MONOCYTES # (AUTO) 0.2 X10'3 (0-0.9); MONOCYTES % (AUTO) 8.7 % (2-12); NEUTROPHILS % (AUTO) 77.3 % (42-75); PLATELET COUNT 166 X10'3 (140-440); RED BLOOD COUNT 3.47 X10'6 (4.20-5.60); RED CELL DISTRIBUTION WIDTH 14.6 % (11.5-14.5); WHITE BLOOD COUNT 2.6 X10'3 (4.5-11.0)
[2019-06-11 09:10] LABS: CLARITY,URINE CLEAR (Clear); COLOR,URINE YELLOW (Yellow); GLUCOSE, URINE NEGATIVE (Neg); KETONES,URINE NEGATIVE (Neg); LEUKOCYTE ESTERASE ,URINE NEGATIVE (Neg); NITRITES, URINE NEGATIVE (Neg); OCCULT BLOOD,URINE NEGATIVE (Neg); PH,URINE 5.5 (4.8-8.0); PROTEIN,URINE NEGATIVE (Neg); UROBILINOGEN,URINE 0.2 E.U/dL (0.2-1.0)
[2019-06-11 09:11] LABS: UA COLLECTION TYPE STRAIGHT CATH
[2019-06-11 09:18] LABS: ALANINE AMINOTRANSFERASE 12 U/L (12-78); ALBUMIN/GLOBULIN RATIO 0.8 (1.1-1.5); ALKALINE PHOSPHATASE 140 IU/L (46-116); ANION GAP 2 (8-16); ASPARTATE AMINO TRANSFERASE 22 U/L (10-37); BILIRUBIN,TOTAL 0.3 MG/DL (0.1-1.0); BLOOD UREA NITROGEN 8 MG/DL (7-18); BUN/CREATININE RATIO 11.4 (6.6-38.0); CALCIUM 8.7 MG/DL (8.5-10.1); CHLORIDE 100 MMOL/L (99-107); GLUCOSE 91 MG/DL (70-104); LIPASE 52 U/L (73-393); POTASSIUM 4.3 MMOL/L (3.5-5.1); SODIUM 134 MMOL/L (135-145); TOTAL CARBON DIOXIDE 31.9 MMOL/L (24-32); TOTAL PROTEIN 6.6 G/DL (6.4-8.2); eGFR 80 ML/MIN
[2019-06-11 09:39] LABS: PLATELET ESTIMATE NORMAL; TOTAL CELLS COUNTED 100
[2019-06-11 10:30] VITALS: BP 135/52
== END 2019-06-11 11:17 | disposition home or self-care (01) ==
LOC: ER 08:00
DX: R11.2 Nausea with vomiting, unspecified (principal); E86.0 Dehydration; R19.7 Diarrhea, unspecified; I25.10 Atherosclerotic heart disease of native coronary artery without angina pectoris; E78.00 Pure hypercholesterolemia, unspecified; I12.9 Hypertensive chronic kidney disease with stage 1 through stage 4 chronic kidney disease, or unspecified chronic kidney disease; N18.9 Chronic kidney disease, unspecified; G89.29 Other chronic pain; Z87.440 Personal history of urinary (tract) infections; Z98.890 Other specified postprocedural states; Z60.2 Problems related to living alone; Z88.0 Allergy status to penicillin; Z79.899 Other long term (current) drug therapy
CPT/HCPCS: 36415; 80053; 81003; 83690; 85025; 99283; J7030; 96360

== ENCOUNTER 2019-09-02 07:26 | Inpatient (IN) | payer MEDICARE, BC ==
[~2019-09-02] VITALS: Ht 154.9 cm; Wt 60.3 kg
[2019-09-02] MEDS ORDERED: morphine 4 MG/ML inj SYRINge IV ONE (08:00)
[2019-09-02] MEDS ORDERED: ondansetron/PF 4mg/2ml inj IV ONE (08:00)
[2019-09-02 08:40] LABS: BASOPHILS % (AUTO) 0.4 % (0-1); EOSINOPHILS % (AUTO) 0.1 % (0-6); HEMATOCRIT 28.5 % (35.0-45.0); HEMOGLOBIN 9.6 g/dl (12.0-16.0); LYMPHOCYTES # (AUTO) 0.4 X10'3 (1.1-4.8); LYMPHOCYTES % (AUTO) 6.1 % (21-51); MEAN CORPUSCULAR HEMOGLOBIN 28.9 PG (27.0-31.0); MEAN CORPUSCULAR HGB CONC 33.7 g/dL (33.0-36.5); MEAN CORPUSCULAR VOLUME 85.9 FL (78-98); MEAN PLATELET VOLUME 7.2 FL (7.4-10.4); MONOCYTES # (AUTO) 0.5 X10'3 (0-0.9); MONOCYTES % (AUTO) 7.8 % (2-12); NEUTROPHILS # (AUTO) 5.8 X10'3 (1.8-7.7); NEUTROPHILS % (AUTO) 85.6 % (42-75); PLATELET COUNT 257 X10'3 (140-440); RED BLOOD COUNT 3.32 X10'6 (4.20-5.60); RED CELL DISTRIBUTION WIDTH 13.8 % (11.5-14.5); WHITE BLOOD COUNT 6.8 X10'3 (4.5-11.0)
[2019-09-02 08:54] LABS: PARTIAL THROMBOPLASTIN TIME 28 SECONDS (22-32)
[2019-09-02 08:58] LABS: ALANINE AMINOTRANSFERASE 13 U/L (12-78); ALBUMIN 2.7 G/DL (3.4-5.0); ALBUMIN/GLOBULIN RATIO 0.7 (1.1-1.5); ALKALINE PHOSPHATASE 95 IU/L (46-116); ANION GAP 2 (8-16); ASPARTATE AMINO TRANSFERASE 29 U/L (10-37); BILIRUBIN,TOTAL 0.4 MG/DL (0.1-1.0); BLOOD UREA NITROGEN 16 MG/DL (7-18); BUN/CREATININE RATIO 17.6 (6.6-38.0); CALCIUM 8.2 MG/DL (8.5-10.1); CHLORIDE 94 MMOL/L (99-107); CREATININE 0.91 MG/DL (0.40-0.90); GLUCOSE 133 MG/DL (70-104); POTASSIUM 4.9 MMOL/L (3.5-5.1); SODIUM 126 MMOL/L (135-145); TOTAL PROTEIN 6.4 G/DL (6.4-8.2); eGFR 59 ML/MIN
[2019-09-02 09:05] LABS: COLOR,URINE YELLOW (Yellow); GLUCOSE, URINE NEGATIVE (Neg); KETONES,URINE NEGATIVE (Neg); LEUKOCYTE ESTERASE ,URINE NEGATIVE (Neg); NITRITES, URINE NEGATIVE (Neg); OCCULT BLOOD,URINE NEGATIVE (Neg); PROTEIN,URINE NEGATIVE (Neg); UROBILINOGEN,URINE 0.2 E.U/dL (0.2-1.0)
[2019-09-02 09:16] LABS: CLARITY,URINE SLIGHTLY CLOUDY (Clear); UA COLLECTION TYPE FOLEY CATH
[2019-09-02 09:17] LABS: BACTERIA,URINE 1+ /HPF (Neg); MUCUS STRANDS MANY /LPF (Neg); RBC,URINE NONE SEEN /HPF (0-2); SQUAMOUS EPITHELIAL CELL,UR MODERATE /LPF (FEW); WBC,URINE 0-4 /HPF (0-4)
--- NOTE | 2019-09-02 09:42 | NUR ---
Dr Ravi to perform surgery in the AM
[2019-09-02] MEDS ORDERED: MULT-1085 PO (09:46)
[2019-09-02] MEDS ORDERED: PREG100C PO (09:46)
--- NOTE | 2019-09-02 09:49 | NUR ---
Spoke with Jacey at [facility], updated on plan of care, stated she will inform family and Dr. Louis of patient's status.
[2019-09-02] MEDS ORDERED: ondansetron/PF 4mg/2ml inj IV PRN (09:50)
[2019-09-02] MEDS: normal saline 1000ml 1,000 ML IV SCH ×2 (09:50→23:10)
[2019-09-02] MEDS ORDERED: mag hydrox/Alum hydrox/simeth 30ml oral suspension PO PRN (09:50)
[2019-09-02] MEDS ORDERED: morphine 2 MG/ML inj. syringe IV PRN (09:50)
[2019-09-02] MEDS ORDERED: acetaminophen 325mg tablet PO PRN (09:50)
[2019-09-02] MEDS: pregabalin 25mg capsule PO SCH ×2 (09:53→20:08)
[2019-09-02] MEDS ORDERED: clopidogrel 75mg tablet PO SCH (09:53)
[2019-09-02] MEDS: pantoprazole 40mg Tablet.DR PO SCH (09:54)
[2019-09-02] MEDS: ferrous sulfate 325mg tablet PO SCH (09:54)
[2019-09-02] MEDS: lisinopril 20mg tablet PO SCH (09:54)
[2019-09-02] MEDS: sertraline 50mg tablet PO SCH (09:54)
[2019-09-02 11:49] VITALS: BP 100/34
--- NOTE | 2019-09-02 11:52 | NUR ---
received report from ER Nurse patient was alert and oriented at time of arrival.
[2019-09-02] MEDS: morphine 2 MG/ML inj. syringe IV PRN ×2 (12:50→21:26)
[2019-09-02] MEDS: oxybutynin 5mg tablet PO SCH ×2 (14:00→20:08)
[2019-09-02] MEDS ORDERED: ringers solution, lacted 1,000 ML IV ONE (16:43)
[2019-09-02 18:00] VITALS: BP 102/42
--- NOTE | 2019-09-02 18:00 | NUR ---
Patient in room ORTHO 4021. I have received report from Desirae LUNDY and had the opportunity to ask questions and assume patient care.
[2019-09-02] MEDS: donepezil 5mg tablet PO SCH (20:08)
[2019-09-02] MEDS: traZODone 50mg tablet PO SCH (20:08)
[2019-09-02] MEDS: docusate sod 100mg capsule PO SCH (20:08)
[2019-09-02] MEDS: HYDROcodone/acetaminophen 5mg/325mg tablet PO PRN (20:50)
[2019-09-02 22:00] VITALS: BP 94/42
[2019-09-03] VITALS (30 sets, daily range): BP systolic 87–149; BP diastolic 30–103
[2019-09-03] MEDS: oxybutynin 5mg tablet PO SCH ×4 (02:03→20:35)
[2019-09-03] MEDS ORDERED: normal saline 250ml IV soln 250 ML IV ONE (05:40)
--- NOTE | 2019-09-03 06:08 | NUR ---
Problems reprioritized. Patient report given, questions answered & plan of care reviewed with Alina LUNDY.
--- NOTE | 2019-09-03 06:30 | NUR ---
Patient in room ORTHO 4021. I have received report from Dragan and had the opportunity to ask questions and assume patient care.
[2019-09-03] MEDS: pantoprazole 40mg Tablet.DR PO SCH (08:00)
[2019-09-03] MEDS: multivitamins, therapeutics tablet PO SCH (08:00)
[2019-09-03] MEDS: sertraline 50mg tablet PO SCH (08:00)
[2019-09-03] MEDS: docusate sod 100mg capsule PO SCH ×2 (08:00→20:35)
[2019-09-03] MEDS: ferrous sulfate 325mg tablet PO SCH (08:00)
[2019-09-03] MEDS: lisinopril 20mg tablet PO SCH (08:00)
[2019-09-03] MEDS: pregabalin 25mg capsule PO SCH ×2 (08:00→20:35)
[2019-09-03] MEDS ORDERED: ringers solution, lacted 1,000 ML IV SCH (08:29)
[2019-09-03 08:30] LABS: BASOPHILS % (AUTO) 0.3 % (0-1); EOSINOPHILS % (AUTO) 0.3 % (0-6); HEMOGLOBIN 7.1 g/dl (12.0-16.0); LYMPHOCYTES # (AUTO) 0.6 X10'3 (1.1-4.8); LYMPHOCYTES % (AUTO) 9.2 % (21-51); MEAN CORPUSCULAR HEMOGLOBIN 28.7 PG (27.0-31.0); MEAN CORPUSCULAR HGB CONC 33.1 g/dL (33.0-36.5); MEAN CORPUSCULAR VOLUME 86.9 FL (78-98); MEAN PLATELET VOLUME 7.6 FL (7.4-10.4); MONOCYTES # (AUTO) 0.7 X10'3 (0-0.9); MONOCYTES % (AUTO) 12.2 % (2-12); NEUTROPHILS # (AUTO) 4.8 X10'3 (1.8-7.7); PLATELET COUNT 161 X10'3 (140-440); RED BLOOD COUNT 2.47 X10'6 (4.20-5.60); RED CELL DISTRIBUTION WIDTH 14.1 % (11.5-14.5); WHITE BLOOD COUNT 6.1 X10'3 (4.5-11.0)
[2019-09-03] MEDS ORDERED: meperidine/PF 25mg/ml syringe IV PRN ×3 (08:30)
[2019-09-03] MEDS ORDERED: morphine 4 MG/ML inj SYRINge IV PRN (08:30)
[2019-09-03] MEDS ORDERED: proCHLORperazine 10 MG/2 ml inj IV PRN (08:30)
[2019-09-03] MEDS ORDERED: morphine 2 MG/ML inj. syringe IV PRN (08:30)
[2019-09-03] MEDS ORDERED: ondansetron/PF 4mg/2ml inj IV PRN (08:30)
[2019-09-03 08:35] LABS: ALBUMIN 2.3 G/DL (3.4-5.0); ANION GAP 5 (8-16); BLOOD UREA NITROGEN 23 MG/DL (7-18); BUN/CREATININE RATIO 18.1 (6.6-38.0); CALCIUM 7.6 MG/DL (8.5-10.1); CHLORIDE 100 MMOL/L (99-107); CREATININE 1.27 MG/DL (0.40-0.90); GLUCOSE 129 MG/DL (70-104); POTASSIUM 4.8 MMOL/L (3.5-5.1); SODIUM 132 MMOL/L (135-145); TOTAL CARBON DIOXIDE 26.8 MMOL/L (24-32); eGFR 40 ML/MIN
[2019-09-03 08:36] LABS: HEMATOCRIT 21.5 % (35.0-45.0)
--- NOTE | 2019-09-03 08:40 | NUR ---
Called [facility] to confirm pt's last dose of Plavix, spoke with Meghann who advised pt had had Plavix on the morning of August 31.
[2019-09-03] MEDS ORDERED: vancomycin inj 1,000 MG in normal saline 250ml IV soln 250 ML IV ONE (09:00)
[2019-09-03] MEDS ORDERED: clindamycin 600mg/D5W 50ml 50 ML IV ONE ×2 (09:00→21:50)
--- NOTE | 2019-09-03 10:27 | NUR ---
Nicci from [facility] called to check in on pt.
--- NOTE | 2019-09-03 11:07 | NUR ---
Pt was wheeled downstairs to the OR
--- NOTE | 2019-09-03 11:30 | NUR ---
Called report to recovery
[2019-09-03] MEDS ORDERED: LIDOcaine 1%/PF 5ML 10 MG/ML VIAL ONE (12:12)
[2019-09-03] MEDS ORDERED: sevoflurane 250ml liquid IH ONE (12:12)
[2019-09-03] MEDS ORDERED: midazolam 2 mg/2 ml injection ONE (12:19)
[2019-09-03] MEDS ORDERED: fentaNYL/PF 50MCG/1 ML 2ML syringe ONE ×2 (12:19→14:33)
--- NOTE | 2019-09-03 13:22 | NUR ---
Received from OR via BED , accompanied by Anesthesiologist DR Black and report given by Anesthesiolgist. PATIENT WAKING UP, DENIES PAIN, V/S WNL, NEUROVASCULAR CHECKS INTACT, 20G x2, border dressing to left hip some shadowing from drainage present will tova.
[2019-09-03] MEDS ORDERED: propofol inj 20 ML IV ONE (14:02)
[2019-09-03] MEDS ORDERED: albumin (Human) 5% 250ml 250 ML IV ONE (14:02)
[2019-09-03] MEDS ORDERED: phenylephrine 10mg/ml inj. ONE (15:04)
[2019-09-03] MEDS ORDERED: ePHEDrine 50MG/ML INJ. ONE (15:04)
[2019-09-03 17:11] LABS: BASOPHILS # (AUTO) 0.1 X10'3 (0-0.2); BASOPHILS % (AUTO) 0.6 % (0-1); EOSINOPHILS % (AUTO) 0 % (0-6); HEMATOCRIT 35.7 % (35.0-45.0); HEMOGLOBIN 11.9 g/dl (12.0-16.0); LYMPHOCYTES # (AUTO) 0.2 X10'3 (1.1-4.8); LYMPHOCYTES % (AUTO) 1.3 % (21-51); MEAN CORPUSCULAR HEMOGLOBIN 30.4 PG (27.0-31.0); MEAN CORPUSCULAR HGB CONC 33.4 g/dL (33.0-36.5); MEAN CORPUSCULAR VOLUME 91.1 FL (78-98); MEAN PLATELET VOLUME 7.6 FL (7.4-10.4); MONOCYTES # (AUTO) 0.9 X10'3 (0-0.9); MONOCYTES % (AUTO) 5.6 % (2-12); NEUTROPHILS # (AUTO) 14.7 X10'3 (1.8-7.7); NEUTROPHILS % (AUTO) 92.5 % (42-75); PLATELET COUNT 133 X10'3 (140-440); RED BLOOD COUNT 3.92 X10'6 (4.20-5.60); RED CELL DISTRIBUTION WIDTH 14.7 % (11.5-14.5); WHITE BLOOD COUNT 15.8 X10'3 (4.5-11.0)
--- NOTE | 2019-09-03 17:13 | NUR ---
Received report from Yesenia in recovery, pt had EBL of +/- 1000 mLs, a total of four units of blood were given, pt sensitive to pain medication, HR has been elevated in the 110s. BP better at 116/48 currently, pt will need to be on tele and cont. pulse ox.
[2019-09-03 17:26] LABS: ALBUMIN 2.5 G/DL (3.4-5.0); ANION GAP 6 (8-16); BLOOD UREA NITROGEN 21 MG/DL (7-18); BUN/CREATININE RATIO 19.1 (6.6-38.0); CALCIUM 7.2 MG/DL (8.5-10.1); CHLORIDE 104 MMOL/L (99-107); GLUCOSE 172 MG/DL (70-104); POTASSIUM 4.9 MMOL/L (3.5-5.1); SODIUM 134 MMOL/L (135-145); TOTAL CARBON DIOXIDE 24.3 MMOL/L (24-32); eGFR 47 ML/MIN
--- NOTE | 2019-09-03 17:42 | NUR ---
Report called to receiving nurse Alina RN. Transferred via ortho bed. Belongings remain in patients room. Special Issues communicated to receiving nurse Fuller RN. Dressing visualized with receiving RN. All events reviewed, including new lab results. BLL call light within reach. Chart at [facility]. Tele 10 placed on patient prior to transfer.
--- NOTE | 2019-09-03 17:48 | NUR ---
Pt arrived back on the floor, tucked in, vitals taken
--- NOTE | 2019-09-03 18:29 | NUR ---
Problems reprioritized. Patient report given, questions answered & plan of care reviewed with Arlin.
--- NOTE | 2019-09-03 18:30 | NUR ---
Patient in room ORTHO 4021. I have received report from NIKKIE Fuller and had the opportunity to ask questions and assume patient care.
[2019-09-03] MEDS: normal saline 1000ml 1,000 ML IV SCH (20:34)
[2019-09-03] MEDS: donepezil 5mg tablet PO SCH (20:35)
[2019-09-03] MEDS: traZODone 50mg tablet PO SCH (20:38)
[2019-09-03] MEDS ORDERED: ceFAZolin 1GM/D5W- ADD-VANTAGE 50 ML IV ONE (21:20)
[2019-09-04] VITALS (12 sets, daily range): BP systolic 83–118; BP diastolic 30–83
[2019-09-04] MEDS: normal saline 1000ml 1,000 ML IV SCH ×3 (01:50→21:36)
[2019-09-04] MEDS: oxybutynin 5mg tablet PO SCH ×4 (01:53→19:57)
[2019-09-04 06:14] LABS: BASOPHILS % (AUTO) 0.1 % (0-1); EOSINOPHILS % (AUTO) 0 % (0-6); HEMATOCRIT 27.6 % (35.0-45.0); HEMOGLOBIN 9.3 g/dl (12.0-16.0); LYMPHOCYTES # (AUTO) 0.4 X10'3 (1.1-4.8); LYMPHOCYTES % (AUTO) 5.8 % (21-51); MEAN CORPUSCULAR HGB CONC 33.8 g/dL (33.0-36.5); MEAN CORPUSCULAR VOLUME 88.9 FL (78-98); MONOCYTES # (AUTO) 0.7 X10'3 (0-0.9); MONOCYTES % (AUTO) 12.1 % (2-12); NEUTROPHILS # (AUTO) 5.1 X10'3 (1.8-7.7); PLATELET COUNT 123 X10'3 (140-440); RED CELL DISTRIBUTION WIDTH 14.6 % (11.5-14.5); WHITE BLOOD COUNT 6.2 X10'3 (4.5-11.0)
[2019-09-04 06:28] LABS: ANION GAP 5 (8-16); BLOOD UREA NITROGEN 21 MG/DL (7-18); BUN/CREATININE RATIO 22.8 (6.6-38.0); CHLORIDE 105 MMOL/L (99-107); CREATININE 0.92 MG/DL (0.40-0.90); GLUCOSE 146 MG/DL (70-104); POTASSIUM 4.9 MMOL/L (3.5-5.1); SODIUM 135 MMOL/L (135-145); TOTAL CARBON DIOXIDE 25.4 MMOL/L (24-32); eGFR 58 ML/MIN
--- NOTE | 2019-09-04 06:35 | NUR ---
Problems reprioritized. Patient report given, questions answered & plan of care reviewed with NIKKIE Crook.
[2019-09-04] MEDS: lisinopril 20mg tablet PO SCH (08:00)
[2019-09-04] MEDS: docusate sod 100mg capsule PO SCH ×2 (08:54→19:58)
[2019-09-04] MEDS: ferrous sulfate 325mg tablet PO SCH (08:54)
[2019-09-04] MEDS: sertraline 50mg tablet PO SCH (08:54)
[2019-09-04] MEDS: pregabalin 25mg capsule PO SCH ×2 (08:55→19:58)
[2019-09-04] MEDS: pantoprazole 40mg Tablet.DR PO SCH (08:55)
[2019-09-04] MEDS: multivitamins, therapeutics tablet PO SCH (08:55)
--- NOTE | 2019-09-04 11:43 | NUR ---
PAGER ID: [phone] MESSAGE: [id number] Luis Eduardo Scott- 104/39 Map 60 hr 89. D/C fluids? Ambreen [phone]
[2019-09-04] MEDS: acetaminophen 325mg tablet PO PRN (14:37)
--- NOTE | 2019-09-04 16:09 | NUR ---
PAGER ID: [phone] MESSAGE: [id number] Luis Eduardo Scott- BP 94/32 map 45 hr 99. Manual BP 100/44. Still running NS at 75 ml/hr. Bolused 500 ml this am as ordered. Ambreen [phone]
--- NOTE | 2019-09-04 16:18 | NUR ---
Spoke with Dr. Archibald about patient low BP's Ordered for a BMP and continue fluids at 75 ml/hr.
[2019-09-04 17:24] LABS: ALBUMIN 1.9 G/DL (3.4-5.0); ANION GAP 5 (8-16); BLOOD UREA NITROGEN 20 MG/DL (7-18); BUN/CREATININE RATIO 23.8 (6.6-38.0); CALCIUM 7.4 MG/DL (8.5-10.1); CHLORIDE 105 MMOL/L (99-107); CREATININE 0.84 MG/DL (0.40-0.90); GLUCOSE 141 MG/DL (70-104); POTASSIUM 4.7 MMOL/L (3.5-5.1); SODIUM 135 MMOL/L (135-145); TOTAL CARBON DIOXIDE 25.3 MMOL/L (24-32); eGFR 64 ML/MIN
--- NOTE | 2019-09-04 18:15 | NUR ---
Patient in room ORTHO 4021. I have received report from NIKKIE Crook and had the opportunity to ask questions and assume patient care.
--- NOTE | 2019-09-04 18:17 | NUR ---
Problems reprioritized. Patient report given, questions answered & plan of care reviewed with Arlin LUNDY.
[2019-09-04] MEDS: donepezil 5mg tablet PO SCH (19:57)
[2019-09-04] MEDS: traZODone 50mg tablet PO SCH (20:13)
[2019-09-04] MEDS ORDERED: normal saline 500ml IV soln 500 ML IV ONE (21:35)
[2019-09-04 21:51] LABS: HEMATOCRIT 24.1 % (35.0-45.0); HEMOGLOBIN 8.1 g/dl (12.0-16.0); MEAN CORPUSCULAR HEMOGLOBIN 30.2 PG (27.0-31.0); MEAN CORPUSCULAR HGB CONC 33.6 g/dL (33.0-36.5); MEAN CORPUSCULAR VOLUME 89.9 FL (78-98); MEAN PLATELET VOLUME 7.8 FL (7.4-10.4); PLATELET COUNT 119 X10'3 (140-440); RED BLOOD COUNT 2.68 X10'6 (4.20-5.60); RED CELL DISTRIBUTION WIDTH 15.1 % (11.5-14.5); WHITE BLOOD COUNT 6.2 X10'3 (4.5-11.0)
[2019-09-05] VITALS (11 sets, daily range): BP systolic 103–146; BP diastolic 36–56
[2019-09-05] MEDS: oxybutynin 5mg tablet PO SCH ×4 (02:06→20:01)
--- NOTE | 2019-09-05 06:10 | NUR ---
Patient in room ORTHO 4021. I have received report from Arlin and had the opportunity to ask questions and assume patient care.
--- NOTE | 2019-09-05 06:23 | NUR ---
Problems reprioritized. Patient report given, questions answered & plan of care reviewed with NIKKIE Fuller.
[2019-09-05 06:59] LABS: BASOPHILS % (AUTO) 0.3 % (0-1); EOSINOPHILS % (AUTO) 0.2 % (0-6); HEMATOCRIT 24.8 % (35.0-45.0); HEMOGLOBIN 8.3 g/dl (12.0-16.0); LYMPHOCYTES # (AUTO) 0.5 X10'3 (1.1-4.8); LYMPHOCYTES % (AUTO) 6.6 % (21-51); MEAN CORPUSCULAR HEMOGLOBIN 30.1 PG (27.0-31.0); MEAN CORPUSCULAR HGB CONC 33.3 g/dL (33.0-36.5); MEAN CORPUSCULAR VOLUME 90.3 FL (78-98); MEAN PLATELET VOLUME 8.1 FL (7.4-10.4); MONOCYTES # (AUTO) 0.6 X10'3 (0-0.9); MONOCYTES % (AUTO) 9.4 % (2-12); NEUTROPHILS # (AUTO) 5.7 X10'3 (1.8-7.7); NEUTROPHILS % (AUTO) 83.5 % (42-75); PLATELET COUNT 134 X10'3 (140-440); RED BLOOD COUNT 2.75 X10'6 (4.20-5.60); RED CELL DISTRIBUTION WIDTH 14.8 % (11.5-14.5); WHITE BLOOD COUNT 6.8 X10'3 (4.5-11.0)
[2019-09-05 07:08] LABS: ANION GAP 5 (8-16); BLOOD UREA NITROGEN 14 MG/DL (7-18); BUN/CREATININE RATIO 20.3 (6.6-38.0); CALCIUM 7.5 MG/DL (8.5-10.1); CHLORIDE 107 MMOL/L (99-107); CREATININE 0.69 MG/DL (0.40-0.90); GLUCOSE 119 MG/DL (70-104); POTASSIUM 4.5 MMOL/L (3.5-5.1); SODIUM 137 MMOL/L (135-145); TOTAL CARBON DIOXIDE 25.4 MMOL/L (24-32); eGFR 81 ML/MIN
[2019-09-05] MEDS: lisinopril 20mg tablet PO SCH (08:00)
[2019-09-05] MEDS: docusate sod 100mg capsule PO SCH ×2 (08:08→20:01)
[2019-09-05] MEDS: pantoprazole 40mg Tablet.DR PO SCH (08:09)
[2019-09-05] MEDS: pregabalin 25mg capsule PO SCH ×2 (08:09→20:02)
[2019-09-05] MEDS: sertraline 50mg tablet PO SCH (08:09)
[2019-09-05] MEDS: ferrous sulfate 325mg tablet PO SCH (08:09)
[2019-09-05] MEDS: multivitamins, therapeutics tablet PO SCH (08:09)
--- NOTE | 2019-09-05 09:00 | NUR ---
Pt's BP labile, discussed holding BP med with hospitalist, okayed to hold today's dose
[2019-09-05] MEDS: magnesium hydroxide 30ml (MOM) UD suspension PO PRN (16:06)
--- NOTE | 2019-09-05 18:05 | NUR ---
Problems reprioritized. Patient report given, questions answered & plan of care reviewed with Tracie.
--- NOTE | 2019-09-05 18:26 | NUR ---
Patient in room ORTHO 4021. I have received report from Alina LUNDY and had the opportunity to ask questions and assume patient care.
[2019-09-05] MEDS: traZODone 50mg tablet PO SCH (20:02)
[2019-09-05] MEDS: donepezil 5mg tablet PO SCH (20:02)
--- NOTE | 2019-09-05 21:59 | NUR ---
DC'd De Leon, patient tolerated well. Wick placed
[2019-09-06] VITALS (8 sets, daily range): BP systolic 95–176; BP diastolic 21–51
[2019-09-06] MEDS: oxybutynin 5mg tablet PO SCH ×4 (02:25→20:34)
--- NOTE | 2019-09-06 06:09 | NUR ---
Problems reprioritized. Patient report given, questions answered & plan of care reviewed with Ambreen LUNDY.
[2019-09-06 06:15] LABS: ALBUMIN 1.8 G/DL (3.4-5.0); ANION GAP 4 (8-16); BLOOD UREA NITROGEN 10 MG/DL (7-18); BUN/CREATININE RATIO 17.5 (6.6-38.0); CALCIUM 7.8 MG/DL (8.5-10.1); CHLORIDE 104 MMOL/L (99-107); CREATININE 0.57 MG/DL (0.40-0.90); GLUCOSE 117 MG/DL (70-104); POTASSIUM 4.3 MMOL/L (3.5-5.1); SODIUM 136 MMOL/L (135-145); TOTAL CARBON DIOXIDE 27.8 MMOL/L (24-32); eGFR > 90 ML/MIN
[2019-09-06 06:40] LABS: BASOPHILS % (AUTO) 0.1 % (0-1); EOSINOPHILS % (AUTO) 0.5 % (0-6); HEMATOCRIT 24.2 % (35.0-45.0); HEMOGLOBIN 8.2 g/dl (12.0-16.0); LYMPHOCYTES # (AUTO) 0.4 X10'3 (1.1-4.8); LYMPHOCYTES % (AUTO) 7.4 % (21-51); MEAN CORPUSCULAR HEMOGLOBIN 30.8 PG (27.0-31.0); MEAN CORPUSCULAR HGB CONC 33.8 g/dL (33.0-36.5); MEAN CORPUSCULAR VOLUME 91.2 FL (78-98); MONOCYTES # (AUTO) 0.5 X10'3 (0-0.9); MONOCYTES % (AUTO) 9.2 % (2-12); NEUTROPHILS # (AUTO) 4.9 X10'3 (1.8-7.7); NEUTROPHILS % (AUTO) 82.8 % (42-75); PLATELET COUNT 160 X10'3 (140-440); RED BLOOD COUNT 2.66 X10'6 (4.20-5.60); RED CELL DISTRIBUTION WIDTH 14.9 % (11.5-14.5); WHITE BLOOD COUNT 5.9 X10'3 (4.5-11.0)
[2019-09-06] MEDS: HYDROcodone/acetaminophen 5mg/325mg tablet PO PRN (07:21)
[2019-09-06] MEDS: lisinopril 20mg tablet PO SCH (08:00)
[2019-09-06] MEDS: multivitamins, therapeutics tablet PO SCH (09:18)
[2019-09-06] MEDS: pregabalin 25mg capsule PO SCH ×2 (09:18→20:34)
[2019-09-06] MEDS: pantoprazole 40mg Tablet.DR PO SCH (09:19)
[2019-09-06] MEDS: sertraline 50mg tablet PO SCH (09:19)
[2019-09-06] MEDS: docusate sod 100mg capsule PO SCH ×2 (09:19→20:33)
[2019-09-06] MEDS: ferrous sulfate 325mg tablet PO SCH (09:19)
--- NOTE | 2019-09-06 11:41 | NUR ---
Spoke with odilia Ledesma to hold lisinopril.
--- NOTE | 2019-09-06 12:00 | NUR ---
MD made aware of pressure areas discovered today.
--- NOTE | 2019-09-06 14:02 | NUR ---
Patient refusing to eat lunch, offered multiple times, still refusing.
[2019-09-06] MEDS: magnesium hydroxide 30ml (MOM) UD suspension PO PRN (14:50)
--- NOTE | 2019-09-06 14:58 | NUR ---
Patient refusing fluids, offered, will continue to offer.
--- NOTE | 2019-09-06 18:21 | NUR ---
Problems reprioritized. Patient report given, questions answered & plan of care reviewed with Zenaida LUNDY.
--- NOTE | 2019-09-06 18:24 | NUR ---
Patient in room ORTHO 4021. I have received report from Ambreen LUNDY and had the opportunity to ask questions and assume patient care.
[2019-09-06] MEDS: donepezil 5mg tablet PO SCH (20:34)
[2019-09-06] MEDS: traZODone 50mg tablet PO SCH (20:34)
[2019-09-07 02:00] VITALS: BP 119/40
[2019-09-07] MEDS: oxybutynin 5mg tablet PO SCH ×4 (02:00→20:24)
[2019-09-07 06:00] VITALS: BP 126/45
--- NOTE | 2019-09-07 06:14 | NUR ---
Problems reprioritized. Patient report given, questions answered & plan of care reviewed with Molly LUNDY.
[2019-09-07 06:47] LABS: ALBUMIN 1.6 G/DL (3.4-5.0); ANION GAP 3 (8-16); BASOPHILS % (AUTO) 0.6 % (0-1); BLOOD UREA NITROGEN 14 MG/DL (7-18); BUN/CREATININE RATIO 21.9 (6.6-38.0); CHLORIDE 105 MMOL/L (99-107); CREATININE 0.64 MG/DL (0.40-0.90); GLUCOSE 102 MG/DL (70-104); HEMOGLOBIN 7.4 g/dl (12.0-16.0); LYMPHOCYTES # (AUTO) 0.4 X10'3 (1.1-4.8); MEAN CORPUSCULAR HGB CONC 33.6 g/dL (33.0-36.5); MEAN CORPUSCULAR VOLUME 92.4 FL (78-98); MEAN PLATELET VOLUME 7.9 FL (7.4-10.4); MONOCYTES # (AUTO) 0.4 X10'3 (0-0.9); MONOCYTES % (AUTO) 9.4 % (2-12); NEUTROPHILS # (AUTO) 3.5 X10'3 (1.8-7.7); PLATELET COUNT 168 X10'3 (140-440); POTASSIUM 4.5 MMOL/L (3.5-5.1); RED BLOOD COUNT 2.38 X10'6 (4.20-5.60); RED CELL DISTRIBUTION WIDTH 15.1 % (11.5-14.5); SODIUM 137 MMOL/L (135-145); TOTAL CARBON DIOXIDE 28.9 MMOL/L (24-32); WHITE BLOOD COUNT 4.5 X10'3 (4.5-11.0); eGFR 88 ML/MIN
--- NOTE | 2019-09-07 07:15 | NUR ---
Received Critical Lab called to floor for this patient. Hgb=7.4 and Hct=22.0. Paged to inform of results. Received return phone call to order CBC at 1800 tonight. Orders entered by NIKKIE Merrill.
[2019-09-07] MEDS: docusate sod 100mg capsule PO SCH ×2 (08:04→20:25)
[2019-09-07] MEDS: ferrous sulfate 325mg tablet PO SCH (08:04)
[2019-09-07] MEDS: pregabalin 25mg capsule PO SCH ×2 (08:05→20:00)
[2019-09-07] MEDS: multivitamins, therapeutics tablet PO SCH (08:05)
[2019-09-07] MEDS: pantoprazole 40mg Tablet.DR PO SCH (08:05)
[2019-09-07] MEDS: lisinopril 20mg tablet PO SCH (08:06)
[2019-09-07] MEDS: sertraline 50mg tablet PO SCH (08:07)
[2019-09-07] MEDS: acetaminophen 325mg tablet PO PRN (08:15)
[2019-09-07] MEDS: bisacodyl 10mg suppository rectal RC PRN (09:55)
[2019-09-07 10:00] VITALS: BP 118/31
[2019-09-07] MEDS ORDERED: magnesium hydroxide 30ml (MOM) UD suspension PO PRN (11:30)
[2019-09-07] MEDS: traMADol 50MG tablet PO PRN (13:06)
[2019-09-07 14:34] VITALS: BP 93/26
--- NOTE | 2019-09-07 14:34 | NUR ---
Page sent to notifying him of current vital signs. HR 69. BP 93/26 (MAP=48). Dr. Archibald phoned back to notify we have CBC scheduled for 1800 today. Will continue to monitor.
--- NOTE | 2019-09-07 16:15 | NUR ---
Nick consult: Nick 12; L hip surgical site and L leg +3 edema. Pt s/p L hip fx repair from fall w/ acute encephalopathy now resolved and symptomatic anemia from fall per MD. Vu JACKSON. Currently AOx4 PO 0-25% avg pureed/thin/no meat diet per MD not meeting needs. Pt unable to wake from sleep during RD visit; written high protein ed w/ RD contact information left at bedside. Pt on aspiration precautions w/ feeder without RADIATOR CORE TESTER BSS this admit; RD recommended RADIATOR CORE TESTER BSS. Pt would benefit from ONS pending RADIATOR CORE TESTER consistency recs. LBM 08/31 receiving routine colace though also iron and ultram; miralax provided today as well for constipation per EMR. Receiving MVI for wound healing needs. Will continue to monitor for additional protein needs. Rec: 1. advance diet per RADIATOR CORE TESTER/MD recs to regular 2. ONS needs pending RADIATOR CORE TESTER BSS recs 3. high protein verbal reinforcement once more appropriate prior to discharge 4. routine bowel care 5. MVI for wound 6. weekly wts Addendum: 09/07/19 at [address] Amended: Links added.
[2019-09-07 17:30] VITALS: BP 87/24
--- NOTE | 2019-09-07 17:48 | NUR ---
Paged Dr. Archibald regarding BP at 1730. BP 87/24 (MAP=50). Will continue to monitor.
[2019-09-07 19:19] LABS: BASOPHILS % (AUTO) 0.3 % (0-1); EOSINOPHILS # (AUTO) 0.1 X10'3 (0-0.9); EOSINOPHILS % (AUTO) 1.4 % (0-6); HEMATOCRIT 22.6 % (35.0-45.0); HEMOGLOBIN 7.4 g/dl (12.0-16.0); LYMPHOCYTES # (AUTO) 0.4 X10'3 (1.1-4.8); LYMPHOCYTES % (AUTO) 8.2 % (21-51); MEAN CORPUSCULAR HEMOGLOBIN 30.1 PG (27.0-31.0); MEAN CORPUSCULAR VOLUME 91.3 FL (78-98); MEAN PLATELET VOLUME 7.9 FL (7.4-10.4); MONOCYTES # (AUTO) 0.5 X10'3 (0-0.9); MONOCYTES % (AUTO) 9.2 % (2-12); NEUTROPHILS # (AUTO) 4.3 X10'3 (1.8-7.7); NEUTROPHILS % (AUTO) 80.9 % (42-75); PLATELET COUNT 212 X10'3 (140-440); RED BLOOD COUNT 2.47 X10'6 (4.20-5.60); RED CELL DISTRIBUTION WIDTH 15.1 % (11.5-14.5); WHITE BLOOD COUNT 5.3 X10'3 (4.5-11.0)
[2019-09-07] MEDS: donepezil 5mg tablet PO SCH (20:24)
[2019-09-07] MEDS: magnesium hydroxide 30ml (MOM) UD suspension PO PRN (20:25)
--- NOTE | 2019-09-07 20:38 | NUR ---
PTS BP IS TRENDING LOW, 87/24, HOLDING LYRICA AND TRAZODONE UNTIL 10PM TO RECHECK BP. GIVING 250ML BOLUS NS NOW PER PROTOCOL.
[2019-09-07] MEDS: traZODone 50mg tablet PO SCH (21:00)
[2019-09-07 22:00] VITALS: BP_SYST 100; BP_SYST 109; BP_DIAS 26; BP_DIAS 44
--- NOTE | 2019-09-07 22:36 | NUR ---
RECHECKED BP ; 109/24. WILL CONTINUE TO MONITOR. HOLDING ALL MEDICATIONS THAT WILL CAUSE HER MORE DROWSINESS OR DEPRESSED BP. MD AWARE OF LOW BP AND RECHECK OF H/H ON LOW SIDE OF NORMAL.
[2019-09-08 02:00] VITALS: BP 104/27
[2019-09-08] MEDS: oxybutynin 5mg tablet PO SCH ×4 (02:00→20:39)
--- NOTE | 2019-09-08 05:59 | NUR ---
REPORT GIVEN TO NIKKIE SIMONS. PT'S AM BP IS 147/53.
[2019-09-08 06:00] VITALS: BP 147/53
[2019-09-08 07:14] LABS: BASOPHILS % (AUTO) 0.4 % (0-1); EOSINOPHILS # (AUTO) 0.1 X10'3 (0-0.9); EOSINOPHILS % (AUTO) 1.6 % (0-6); HEMOGLOBIN 7.8 g/dl (12.0-16.0); LYMPHOCYTES # (AUTO) 0.5 X10'3 (1.1-4.8); LYMPHOCYTES % (AUTO) 8.8 % (21-51); MEAN CORPUSCULAR HEMOGLOBIN 31.1 PG (27.0-31.0); MEAN CORPUSCULAR HGB CONC 33.8 g/dL (33.0-36.5); MEAN CORPUSCULAR VOLUME 92.2 FL (78-98); MEAN PLATELET VOLUME 7.9 FL (7.4-10.4); MONOCYTES # (AUTO) 0.4 X10'3 (0-0.9); MONOCYTES % (AUTO) 8.2 % (2-12); NEUTROPHILS # (AUTO) 4.3 X10'3 (1.8-7.7); PLATELET COUNT 218 X10'3 (140-440); RED BLOOD COUNT 2.49 X10'6 (4.20-5.60); RED CELL DISTRIBUTION WIDTH 14.8 % (11.5-14.5); WHITE BLOOD COUNT 5.3 X10'3 (4.5-11.0)
[2019-09-08] MEDS: lisinopril 20mg tablet PO SCH (08:00)
[2019-09-08] MEDS: multivitamins, therapeutics tablet PO SCH (08:24)
[2019-09-08] MEDS: pregabalin 25mg capsule PO SCH ×2 (08:24→20:00)
[2019-09-08] MEDS: ferrous sulfate 325mg tablet PO SCH (08:24)
[2019-09-08] MEDS: pantoprazole 40mg Tablet.DR PO SCH (08:24)
[2019-09-08] MEDS: docusate sod 100mg capsule PO SCH ×2 (08:24→20:39)
[2019-09-08] MEDS: sertraline 50mg tablet PO SCH (08:24)
[2019-09-08 11:00] VITALS: BP 117/31
[2019-09-08] MEDS: traMADol 50MG tablet PO PRN (12:44)
--- NOTE | 2019-09-08 14:12 | NUR ---
F/u (09/07: Pt seen by JOSSY for verbal high protein ed reinforcement. To continue pureed/thin w/ feeder per SCREENING UNIT REGISTERED NURSE recs today. Pt is agreeable to Lamine winston DYEBD no flavor preferences. WHITE SU[employer]AR PAN TANK OPERATOR notified. Addendum: 09/08/19 at [address] Amended: Links added.
[2019-09-08] MEDS: JUVEN Smoothie Arginine/Glut./Ca2+Bmb (Juven 19.3pkt) 240ml cup PO SCH (17:30)
[2019-09-08] MEDS: donepezil 5mg tablet PO SCH (20:39)
[2019-09-08] MEDS: traZODone 50mg tablet PO SCH (20:41)
[2019-09-08] MEDS: magnesium hydroxide 30ml (MOM) UD suspension PO PRN (20:44)
--- NOTE | 2019-09-08 21:58 | NUR ---
pt is very sedate and not moving much, held trazodone and lyrica. pt is not complaining of pain, she is barely waking for her medications, she is able to talk and answer questions but is too drowsy to be alert and awake. Will continue to monitor.
[2019-09-08 22:00] VITALS: BP 100/44
[2019-09-09 02:00] VITALS: BP 120/40
[2019-09-09] MEDS: oxybutynin 5mg tablet PO SCH ×4 (02:00→20:46)
[2019-09-09 06:00] VITALS: BP 95/40
--- NOTE | 2019-09-09 06:11 | NUR ---
Report given to sulma Barnes.
[2019-09-09] MEDS: lisinopril 20mg tablet PO SCH (08:00)
[2019-09-09] MEDS: pregabalin 25mg capsule PO SCH ×2 (08:00→22:12)
[2019-09-09] MEDS: docusate sod 100mg capsule PO SCH ×2 (08:14→20:46)
[2019-09-09] MEDS: multivitamins, therapeutics tablet PO SCH (08:15)
[2019-09-09] MEDS: magnesium hydroxide 30ml (MOM) UD suspension PO PRN (08:15)
[2019-09-09] MEDS: ferrous sulfate 325mg tablet PO SCH (08:15)
[2019-09-09] MEDS: sertraline 50mg tablet PO SCH (08:15)
[2019-09-09] MEDS: pantoprazole 40mg Tablet.DR PO SCH (08:15)
[2019-09-09] MEDS: JUVEN Smoothie Arginine/Glut./Ca2+Bmb (Juven 19.3pkt) 240ml cup PO SCH ×2 (08:15→17:36)
[2019-09-09 10:00] VITALS: BP 129/41
[2019-09-09] MEDS ORDERED: magnesium citrate 296ml oral solution PO ONE (10:55)
[2019-09-09] MEDS: traMADol 50MG tablet PO PRN (13:31)
--- NOTE | 2019-09-09 15:18 | NUR ---
F/u (09/08): Pt seen by JOSSY not alert but able to report no meats is home meal preference. Pt on pureed diet so additional ensure pudding at lunch and receiving yogurt TIDWM. JOSSY d/w dietary. Rec: 1. advance diet per DATA PROGRAMMER/ recs to regular 2. Lamine smoothie BIDBD for wound healing; yogurt TIDWM; ensure pudding at lunch 3. routine bowel care 4. MVI for wound 5. weekly wts Addendum: 09/09/19 at [address] Amended: Links added.
[2019-09-09 18:00] VITALS: BP 119/44
--- NOTE | 2019-09-09 18:26 | NUR ---
Patient in room ORTHO 4021. I have received report from Molly LUNDY and had the opportunity to ask questions and assume patient care.
[2019-09-09] MEDS: donepezil 5mg tablet PO SCH (20:46)
[2019-09-09 22:00] VITALS: BP 124/33
--- NOTE | 2019-09-09 22:10 | NUR ---
Spoke with MD about patient being very lethargic and tired. OK to hold Lyrica and Trazodone venkatesh
[2019-09-09] MEDS: traZODone 50mg tablet PO SCH (22:12)
[2019-09-10] MEDS: oxybutynin 5mg tablet PO SCH ×3 (01:42→13:49)
--- NOTE | 2019-09-10 01:45 | NUR ---
Elevated temp. Tylenol given. Cool rags applied and educated on importance of deep breathing. Patient did one weak cough. Patient very tired and lethargic.
[2019-09-10] MEDS: bisacodyl 10mg suppository rectal RC PRN (05:34)
[2019-09-10 06:00] VITALS: BP 120/43
--- NOTE | 2019-09-10 06:25 | NUR ---
Problems reprioritized. Patient report given, questions answered & plan of care reviewed with Soha LUNDY.
[2019-09-10] MEDS: JUVEN Smoothie Arginine/Glut./Ca2+Bmb (Juven 19.3pkt) 240ml cup PO SCH (07:30)
[2019-09-10] MEDS: multivitamins, therapeutics tablet PO SCH (08:00)
[2019-09-10] MEDS: docusate sod 100mg capsule PO SCH (08:00)
[2019-09-10] MEDS ORDERED: enoxaparin 40mg/0.4ml syringe SUBCUT SCH (08:00)
[2019-09-10] MEDS: lisinopril 20mg tablet PO SCH (08:00)
--- NOTE | 2019-09-10 11:54 | NUR ---
Reassessment: Pt PO 50-75% Lamine smoothie BIDBD past 2 times improved from initial refusal w/ PO 25-50% meals up to 50% avg at times as well. Decent given age/weight. Receiving ensure pudding at lunches, yogurt TIDWM since does not eat meat for additional protein options. Large BM 09/09 following constipation resolution; routine colace held today given diarrhea. Likely finally constipation resolution not diet-related. Receiving routine iron as well. L hip surgical site, L heel STDI pressure area, and coccyx small DTI per WOC. Will continue to monitor for additional protein needs. Rec: 1. advance diet per POLE TRUCK DRIVER/MD recs to regular 2. Lamine smoothie BIDBD for wound healing; yogurt TIDWM; ensure pudding at lunch 3. routine bowel care 4. MVI for wound 5. weekly wts Addendum: 09/10/19 at [address] Amended: Links added.
--- NOTE | 2019-09-10 13:16 | NUR ---
2 Hospital acquired pressure injuries identified. 09/02/19 Patient presented to the ED complaining of left hip pain after a ground level fall. Imaging revealed a displaced IT left hip fracture. Pt resides at [facility]. She has history of dementia, hypertension, GERD, peripheral vascular disease w/ resulting right BKA in 2018, coronary artery disease, chronic kidney disease, GI bleed, insomnia, and depression. Pt was anemic on admit with H/H of 8.3 mg/dl and 24.8%. Nutrition altered as reflected by low albumin level of 2.7 g/dl. 09/03/19 Patient taken to OR by Dr. Ravi for ORIF with IM rodding. She received 1 unit of PRBCs preoperatively and 3 units during surgery. 09/04/19 Pt continued to experience anemia with H/H of 7.1 mg/dl and 21.5%. She received 2 more units of PRBCs. Discharge disposition intended to send patient to rehab prior to returning to the assisted living facility. Physical therapy working with patient and recorded goal of assisted slide board transfers but patient unable to tolerate even dangling at that time. 09/05/19 PT working with patient. They are unable to use Emma as it would interfere with the left hip surgical intervention. 09/06/19 Patient unable to safely use slide board due to lack of strength in the trunk. Upon positioning with slide board the patient began to slide off the bed. PT recorded that using slide board would be extremely dangerous. Nursing noted discoloration to left heel and redness to sacrum. Sent WOC consult at that time. 09/07/19 Patient again unable to work with PT due to pain. PT note indicates that the patient was able to perform passive ROM only. Nutrition continuing to decline with albumin down to 1.6 g/dl. 09/08/19 PT recommended lift be used for pt to be in a chair but also indicated that the sling wound likely interfere with left hip and cause increased pain. Pt evaluated by speech therapy and found to have trouble chewing regular food. The pt will require pureed/soft diet and a feeder. 09/09/19 PT assessment indicates patients complete lack of trunk control and that patient will likely be bedbound. 09/04/19-09/09/19 Nursing recording intake of 0-50% of most meals with multiple meals refused. Patient was requiring total assistance for PO intake. 09/08/19 [facility] staff bedside and identified a DTI on left heel, maroon and purple in color. Due to boggy nature and lack of any movement the wound will likely follow its etiological path. Recommend optifoam as it is appropriate and strict offloading of the heel whenever pt is in bed. There was also noted redness to the sacrum but area still blanches. 09/09/19 [facility] staff bedside and identified a sacral DTI. Small area involved with maroon discoloration. 09/10/19 Pt ability to work with PT improved slightly per their report. They plan to transfer her to a chair using a Emma lift. Pt accepted to rehab facility. Addendum: 09/10/19 at 1317 by Alysha Steven RN Amended: Links added.
[2019-09-10] MEDS: ferrous sulfate 325mg tablet PO SCH (13:30)
[2019-09-10] MEDS: pantoprazole 40mg Tablet.DR PO SCH (13:30)
[2019-09-10] MEDS: sertraline 50mg tablet PO SCH (13:30)
== END 2019-09-10 16:55 | DRG 480 ==
LOC: ER 07:27 → ED HOLD 09:50 → ORTHO 4S 11:40
PROVIDERS: ADMIT Internal Medicine; ATTEND Internal Medicine
PROC: 30233N1 Transfusion of Nonautologous Red Blood Cells into Peripheral Vein, Percutaneous Approach (ICD-10-PCS; 2019-09-03)
PROC: 0QS706Z Reposition Left Upper Femur with Intramedullary Internal Fixation Device, Open Approach (ICD-10-PCS; principal; 2019-09-03 12:12)
DX: S72.22XA Displaced subtrochanteric fracture of left femur, initial encounter for closed fracture (principal); N17.0 Acute kidney failure with tubular necrosis; G92 Toxic encephalopathy; E43 Unspecified severe protein-calorie malnutrition; E87.1 Hypo-osmolality and hyponatremia; D62 Acute posthemorrhagic anemia; W01.0XXA Fall on same level from slipping, tripping and stumbling without subsequent striking against object, initial encounter; I12.9 Hypertensive chronic kidney disease with stage 1 through stage 4 chronic kidney disease, or unspecified chronic kidney disease; E78.00 Pure hypercholesterolemia, unspecified; F03.90 Unspecified dementia, unspecified severity, without behavioral disturbance, psychotic disturbance, mood disturbance, and anxiety; I25.10 Atherosclerotic heart disease of native coronary artery without angina pectoris; I73.9 Peripheral vascular disease, unspecified; K59.00 Constipation, unspecified; N18.9 Chronic kidney disease, unspecified; Z66 Do not resuscitate; G89.29 Other chronic pain; F32.9 Major depressive disorder, single episode, unspecified; K21.9 Gastro-esophageal reflux disease without esophagitis; I95.9 Hypotension, unspecified; Z79.02 Long term (current) use of antithrombotics/antiplatelets; Z87.891 Personal history of nicotine dependence; Z89.511 Acquired absence of right leg below knee; Z90.710 Acquired absence of both cervix and uterus; Z88.0 Allergy status to penicillin; Y93.89 Activity, other specified; Y92.89 Other specified places as the place of occurrence of the external cause; Y99.8 Other external cause status; Z68.25 Body mass index [BMI] 25.0-25.9, adult
CPT/HCPCS: 36415; 36430; 71045; 73502; 76000; 80048; 80053; 81001; 83880; 83930; 83935; 84300; 85025; 85027; 85610; 85730; 86885; 86900; 86901; 86920; 87081; 92508; 92616; 93005; 96374; 96375; 97110; 97112; 97162; 97530; 97535; 99285; A4215; A4618; A6258; A7000; C1713; G0378; J1650; J2250; J2270; J2370; J2405; J2704; J3010; J3490; J7030; J7040; J7050; J7120; P9016; P9045